=== PATIENT | female | born 1970 | race Caucasian/White ===

== ENCOUNTER 2022-07-17 03:50 | Inpatient (IN) | payer OTHER ==
[~2022-07-17] VITALS: Ht 162.6 cm; Wt 142.0 kg
[2022-07-17] MEDS ORDERED: LORA10ER PO (07:32)
[2022-07-17] MEDS ORDERED: Acetaminophen325 M1 PO (07:33)
[2022-07-17] MEDS ORDERED: SPIR25 PO (07:34)
[2022-07-17] MEDS ORDERED: FURO20 PO (07:34)
[2022-07-17] MEDS ORDERED: BUPR150ER PO (07:35)
[2022-07-17] MEDS ORDERED: VITAMIN B-1100 M1 PO (07:36)
[2022-07-17] MEDS ORDERED: FOLI1 PO (07:36)
[2022-07-17] MEDS ORDERED: B-12500 MC2 PO (07:37)
[2022-07-17] MEDS ORDERED: ACYC400 PO (07:37)
[2022-07-17] MEDS ORDERED: ACAMPROSATE CA333 MG PO (07:38)
[2022-07-17] MEDS ORDERED: MIRALAX11910 PO (07:39)
[2022-07-17] MEDS ORDERED: ALBU90OI INH (07:40)
[2022-07-17] MEDS ORDERED: Flonase 0.05% N16 GM (07:40)
--- NOTE | 2022-07-17 08:04 | NUR ---
PT ARRIVED TO ROOM AROUND 0700, PT SETTLED IN AND MONITORS PLACED. PT MAKES WORDS, DOESN'T ANSWER QUESTIONS, ANSWERS "THE ORIGINAL" WHEN ASKED WHERE SHE IS. SHE DOESN'T ANSWER HER BIRTHDAY, YEAR, ETC. WHEN LYING FLAT SATS DROPPED TO MID 80S, OXYGEN VIA NC PLACED AT 5L. AFTER WEARING OXYGEN FOR SOME TIME HER SATS MAINTAINED AT 100% AND NOW IS TITRATED DOWN TO 2L. KHOA,CHARGE NURSE CALLED TO COMPLETE THE ADMISSION. PT CONTINUES TO MOAN INTERMITTENTLY. LUNGS WITH INSPIRATORY WHEEZE, BELLY LARGE DISTENDED, PITTING EDEMA TO THE PERIMETER OF THE ABDOMEN, AREA AROUND UMBILICUS IS NOT. INCONTINENT OF LIQUID STOOL, CATHETER WITH MINIMAL YELLOW RETURN. ANKLES WITH GOOD COLOR/TEMP/REFILL NO EDEMA. PIV IN RIGHT AC.
[2022-07-17 09:06] LABS: BASOPHILS ABSOLUTE AUTO 0.02 K/mm3 (0.00-0.23); BASOPHILS PERCENT AUTO 0 % (0-2); EOSINOPHILS ABSOLUTE AUTO 0.09 K/mm3 (0.00-0.68); EOSINOPHILS PERCENT AUTO 1 % (0-6); Hematocrit 20.9 % (33.0-51.0); Hemoglobin 7.4 g/dL (11.5-16.0); IMMATURE GRAN PERCENT AUTO 1 % (0-1); LYMPHOCYTES ABSOLUTE AUTO 1.59 K/mm3 (0.84-5.20); LYMPHOCYTES PERCENT AUTO 10 % (21-46); MONOCYTES ABSOLUTE AUTO 1.55 K/mm3 (0.16-1.47); MONOCYTES PERCENT AUTO 10 % (4-13); Mean Corpuscular HGB Conc 35.4 g/dL (31.5-36.5); Mean Corpuscular Volume 113 fL (80-100); Mean Platelet Volume 10.1 fL (9.1-12.4); NEUTROPHILS ABSOLUTE AUTO 12.34 K/mm3 (1.96-9.15); NEUTROPHILS PERCENT AUTO 79 % (41-73); Platelet Count 129 K/mm3 (150-400); RDW Coefficient Variation 16.5 % (11.7-14.2); RDW Standard Deviation 66.5 fL (35.1-46.3); Red Blood Cell Count 1.85 M/mm3 (3.80-5.20); White Blood Cell Count 15.69 K/mm3 (4.00-11.30)
[2022-07-17 09:35] LABS: Albumin/Globulin Ratio 0.8 (0.8-1.8); Bilirubin, Total 4.5 mg/dL (0.1-1.0); Bun/Creatinine Ratio 8.5 (12.0-20.0); Calcium, Blood 8.7 mg/dL (8.5-10.1); Creatinine, Blood 5.03 mg/dL (0.40-1.00); Globulin, Blood 3.8 g/dL (2.2-4.0); Magnesium, Blood 2.3 mg/dL (1.6-2.4); Phosphorus, Blood 4.8 mg/dL (2.5-4.9); Potassium, Blood 4.3 mmol/L (3.5-5.5); Total Protein, Blood 6.8 g/dL (6.4-8.2)
[2022-07-17 10:55] LABS: Base Excess Venous -7.2 mmol/L; Bicarbonate Venous 18.6 mmol/L (24.0-30.0); pH Blood Venous 7.22 (7.34-7.37)
[2022-07-17 11:16] LABS: International Normalized Ratio 1.48; Prothrombin Time Results 15.1 Sec (9.7-11.5)
--- NOTE | 2022-07-17 13:05 | NUR ---
LATE NOTE: PT CONTINUES TO BE ONE WORD ANSWERS, VIDEO CONSULT PT WAS UNABLE TO ANSWER HER QUESTIONS, WAS AT THE BEDSIDE DURING CONSULT. PT REMAINS WITH COUGH, MOIST, SWALLOWS THE RETURN. ABD REMAINS FIRM LARGE, PITTING, ROE CONTINUES WITH SCANT RETURN. ZAIRARN FROM ICU TO BEDSIDE FOR REPORT, TRANSFERS TO ICU WITH REINIER VOSS AND KATIE DIEHL.
[2022-07-17 13:25] LABS: Hematocrit 21.6 % (33.0-51.0); Hemoglobin 7.3 g/dL (11.5-16.0)
--- NOTE | 2022-07-17 14:00 | NUR ---
TRANSFER TO ICU PT ARRIVED TO ICU 15 VIA BED AT 1255. PT IS LETHARGIC AND MOANS OUT. SPEECH IS CLEAR AT TIMES WHEN PT YELLS OUT. PT IS CONFUSED AND NOT REDIRECTABLE. PT ON 2L O2 NC, LS CLEAR IN UPPERS, DIM IN BASES. WITH OCCASIONAL MOIST COUGH. PT HYPOTENSIVE UPON ARRIVAL. PICC PLACED TO [facility]. LEVOPHED STARTED AT 2 MCG/MIN AND 3% SALINE STARTED AT 25 ML/HR. PT WITH ROE IN PLACE DRAINING SMALL AMOUNT OF BLOODY URINE OUTPUT. NO FAMILY AT BEDSIDE. WILL CONTINUE TO MONITOR.
[2022-07-17 15:05] LABS: Percent Saturation 121.1 % (15.0-50.0)
[2022-07-17 16:11] LABS: Hematocrit 20.8 % (33.0-51.0); Hemoglobin 7.3 g/dL (11.5-16.0)
--- NOTE | 2022-07-17 17:28 | NUR ---
SHIFT SUMMARY NO ACUTE CHANGES THIS SHIFT. PT REMAINS OBTUNDED WITH OCCASIONAL PERIODS OF MOANING OUT AND YELLING. PT IS NOT REDIRECTABLE. SOME WORDS ARE CLEAR. PT MOVES ALL EXTREMITIES. VITAL SIGNS STABLE WITH LEVOPHED INFUSING AT 6 MCG/MIN. PICC TO CORBIN IN PLACE. 3% SALINE INFUSING AT 25 ML/HR. ROE REMAINS IN PLACE WITH MINIMAL AMOUNT OF DARK RED OUTPUT NOTED. WILL CONTINUE TO MONITOR AND REPORT OFF TO ONCOMING RN.
--- NOTE | 2022-07-17 19:15 | NUR ---
ASSUMED CARE PATIENT LYING IN BED INTERMITTENTLY ASLEEP. BEGINS TALKING IF SOMEONE IS IN THE ROOM RESPONDING WHEN AWAKE, THEN QUICKLY RETURNS TO SLEEP. RESPONDS TO VERBAL STIMULI AT TIMES, OTHER TIMES OBTUNDED AND DIFFICULT TO AROUSE. LEVOPHED INF @ 6MCG/KG/MIN AND 3% SALINE @ 25ML/HR. MINIMAL URINE OUTPUT IN ROE TUBING. 2LPM VIA NC IN PLACE WITH SPO2 HIGH 90'S-100%. BP SOFT WITH MAPS 60-65. MONITOR SHOWS SINUS RHYTHM WITH RATE 90'S. REPORT RECEIVED FROM ZAIRA Gomez RN.
[2022-07-17 19:17] LABS: Albumin, Blood 3.4 g/dL (3.4-5.0); Anion Gap 10 mmol/L (6-16); Blood Urea Nitrogen 50 mg/dL (8-24); Bun/Creatinine Ratio 9.3 (12.0-20.0); CO2, Blood 21 mmol/L (21-32); Calcium, Blood 9.1 mg/dL (8.5-10.1); Chloride, Blood 92 mmol/L (98-108); Creatinine, Blood 5.39 mg/dL (0.40-1.00); Glomerular Filtration Rate 9 (60-); Glucose, Blood 126 mg/dL (70-99); Phosphorus, Blood 4.9 mg/dL (2.5-4.9); Potassium, Blood 4.2 mmol/L (3.5-5.5); Sodium, Blood 123 mmol/L (136-145)
--- NOTE | 2022-07-17 21:00 | NUR ---
DR. HRERERA CALL DR. HERRERA CALLED FOR AN UPDATE ON PATIENT. UPDATE GIVEN THAT BP IS SOFT WITH INCREASE OF LEVOPHED FROM 6MCG/KG/MIN TO 7MCG/KG/MIN AND THERE IS MINIMAL OUTPUT FROM ROE. DR. HERRERA ORDERED A LASIX GTT AND REQUESTED TO BE NOTIFED IF SODIUM LEVELS CONITNUE TO DROP. LABS SCHEDULED FOR 2200.
[2022-07-17 22:24] LABS: Hematocrit 20.1 % (33.0-51.0); Hemoglobin 7.2 g/dL (11.5-16.0)
[2022-07-18 04:20] LABS: Hematocrit 19.6 % (33.0-51.0); Hemoglobin 6.9 g/dL (11.5-16.0); Mean Corpuscular HGB 39.4 pg (26.0-34.0); Mean Corpuscular HGB Conc 35.2 g/dL (31.5-36.5); Mean Corpuscular Volume 112 fL (80-100); Platelet Count 121 K/mm3 (150-400); RDW Coefficient Variation 16.5 % (11.7-14.2); RDW Standard Deviation 66.3 fL (35.1-46.3); Red Blood Cell Count 1.75 M/mm3 (3.80-5.20); White Blood Cell Count 15.23 K/mm3 (4.00-11.30)
[2022-07-18 04:41] LABS: International Normalized Ratio 1.5; Prothrombin Time Results 15.3 Sec (9.7-11.5)
[2022-07-18 04:51] LABS: Albumin, Blood 3.5 g/dL (3.4-5.0); Calcium, Blood 8.6 mg/dL (8.5-10.1); Creatinine, Blood 5.68 mg/dL (0.40-1.00); Globulin, Blood 3.5 g/dL (2.2-4.0); Magnesium, Blood 2.2 mg/dL (1.6-2.4); Potassium, Blood 4.3 mmol/L (3.5-5.5)
--- NOTE | 2022-07-18 06:14 | NUR ---
SHIFT SUMMARY PATIENT REMAINS CONFUSED, STATES SHE IS IN [place] AND DOES NOT ANSWER OTHER ORIENTATION QUESTIONS. DOES NOT FOLLOW COMMANDS. EASILY AGITATED. BP REMAIN SOFT. LEVOPHED INCREASED TO 13 MCG/KG/MIN, 3% SALINE REMAINS AT 25ML/HR. LASIX GTT STARTED AT BEGINNING OF SHIFT AND REMAINED ON UNTIL THIS MORNING WHEN UPDATE GIVEN TO DR. HERRERA. WITH NO URINE OUTPUT AND HEMODYNAMIC INSTABILITY, DR. HERRERA ORDERED THE LASIX GTT BE DC'D AND TO CONSULT HOSPITALIST FOR BLOOD TRANSFUSION FOR HGB 6.9. ONCE PATIENT IS HEMODYNAMICALLY STABLE, THEN DIALYSIS WILL BE AN OPTION. NA REMAINS LOW, DECREASED FROM 126 [address]. CALL MADE TO DR. JOHNSON FOR TRANSFUSION ORDER PER RECOMMENDATION. ORDERS RECEIVED TO TRANSFUSE 1 UNIT PRBC AND VASOPRESSIN TO BE STARTED ONCE LEVOPHED TITRATION REACHES 20MCG/KG/MIN. NO BLOOD CONSENT AVAILABLE AND PATIENT'S AMS IS TOO SEVERE FOR HER TO PROVIDE CONSENT. LEFT MESSAGE ON VOICEMAIL WITH PATIENT'S TO RETURN CALL TO OBTAIN BLOOD CONSENT. OXYGEN REQUIREMENTS INCREASED FROM 2LPM VIA NC TO 4LPM VIA NC WITH SPO2 LOW TO MID 90'S. RHYTHM REMAINS NSR WITH RATE IN 90'S. ROE CATHETER REPLACED D/T BEING PRESENT ON ADMISSION. SKIN TEAR SEEN ON RT BUTTOCK-SITE CLEANSED AND PICTURE PLACED IN CHART. NO OTHER CHANGES DURING SHIFT.
[2022-07-18 12:50] LABS: Hematocrit 20.3 % (33.0-51.0); Hemoglobin 7.2 g/dL (11.5-16.0)
--- NOTE | 2022-07-18 17:32 | NUR ---
SHIFT SUMMARY PT MORE ALERT THIS AFTERNOON WITH FAMILY AT BEDSIDE. PT IS ABLE TO ANSWER SIMPLE QUESTIONS AND FOLLOW SIMPLE DIRECTIONS FOR SHORT PERIODS OF TIME. PT REMAINS CONFUSED AND FREQUENTLY MUMBLES AND YELLS OUT NONSENSICAL SPEECH. DIALYSIS CATH PLACED THIS SHIFT. PT RECIEVING DIALYSIS AT THIS TIME. PICC TO CORBIN REMAINS C/D/I. LEVOPHED INFUSING AT 4 MCG/MIN AND NS TKO. PT REMAINS ON 2L O2 NC. ROE REMAINS IN PLACE WITH SCANT AMOUNT OF BLOODY/DARK URINE OUTPUT NOTED. ROE IRRIGATED THIS AM PER DR HERRERA WITHOUT RETURN OF CLOTS NOTED. MULTIPLE PT FAMILY MEMBERS IN AND OUT OF THE ROOM THIS AFTERNOON. WILL CONTINUE TO MONITOR AND REPORT OFF TO ONCOMING RN.
[2022-07-18 21:02] LABS: Hematocrit 19.7 % (33.0-51.0); Hemoglobin 7.1 g/dL (11.5-16.0)
--- NOTE | 2022-07-18 21:45 | NUR ---
ASSUMED CARE. PT WAS AGGITATED BY FAMILY BEING HER SHE IS NOW STARTING TO CALM DOWN. SHE IS CONFUSED, ONLY KNOWS SELF. YELLS OUT ALOT, MARITZA OCCATIONALLY, AND COMPLAINS OF THINGS LIKE SHE CAN'T FIND HER CALL LIGHT THAT IS IN HER HAND. SHE HAD A LARGE BLOW OUT OF STOOL THAT TOOK 4 PEOPLE TO CLEAN HER UP WITH. RECTAL TUBE WAS PLACED AT THAT TIME. STOOL WAS LIQUID WITH COFFEE GROUNDS LIKE SEDIMENT, SOME BRIGHT RED BLOOD AT WHICH SHE SAID SHE HAS HEMMORRIODS, 200CC WAS SUCTIONED UP IN CANISTER. CATH STILL HAS BLOOD NOTED. SHE FINISHED DIALYSIS, BLOOD PRESSURES ARE HOLDING ON [address] FLOREZ IN REGARDS TO BLOOD BLACK STOOLS, ORDER FOR GI CONSULT WILL BE PLACED, STAT H&H AND MELATONIN ORDERED TO HELP HER SLEEP. WILL CONTINUE TO MONITOR, CALL LIGHT IS IN REACH.
[2022-07-19 03:47] LABS: BASOPHILS ABSOLUTE AUTO 0.02 K/mm3 (0.00-0.23); BASOPHILS PERCENT AUTO 0 % (0-2); EOSINOPHILS ABSOLUTE AUTO 0.11 K/mm3 (0.00-0.68); EOSINOPHILS PERCENT AUTO 1 % (0-6); Hematocrit 19.6 % (33.0-51.0); Hemoglobin 6.9 g/dL (11.5-16.0); IMMATURE GRAN ABSOLUTE AUTO 0.22 K/mm3 (0.00-0.10); IMMATURE GRAN PERCENT AUTO 2 % (0-1); LYMPHOCYTES ABSOLUTE AUTO 1.33 K/mm3 (0.84-5.20); LYMPHOCYTES PERCENT AUTO 9 % (21-46); MONOCYTES ABSOLUTE AUTO 1.81 K/mm3 (0.16-1.47); MONOCYTES PERCENT AUTO 12 % (4-13); Mean Corpuscular HGB 38.1 pg (26.0-34.0); Mean Corpuscular HGB Conc 35.2 g/dL (31.5-36.5); Mean Corpuscular Volume 108 fL (80-100); Mean Platelet Volume 10.5 fL (9.1-12.4); NEUTROPHILS ABSOLUTE AUTO 11.09 K/mm3 (1.96-9.15); NEUTROPHILS PERCENT AUTO 76 % (41-73); NRBC ABSOLUTE 0.02 K/mm3 (0.00-0.02); NRBC Auto 0.1 /100 WBC (0.0-0.2); Platelet Count 108 K/mm3 (150-400); RDW Coefficient Variation 17.9 % (11.7-14.2); RDW Standard Deviation 68.7 fL (35.1-46.3); Red Blood Cell Count 1.81 M/mm3 (3.80-5.20); White Blood Cell Count 14.58 K/mm3 (4.00-11.30)
[2022-07-19 04:04] LABS: Albumin/Globulin Ratio 1.2 (0.8-1.8); Bilirubin, Total 4.1 mg/dL (0.1-1.0); Bun/Creatinine Ratio 8.1 (12.0-20.0); Calcium, Blood 8.6 mg/dL (8.5-10.1); Creatinine, Blood 4.58 mg/dL (0.40-1.00); Globulin, Blood 3.2 g/dL (2.2-4.0); Magnesium, Blood 2.2 mg/dL (1.6-2.4); Phosphorus, Blood 3.6 mg/dL (2.5-4.9); Total Protein, Blood 7.2 g/dL (6.4-8.2)
[2022-07-19 04:18] LABS: Creatinine, Urine Random 95.5 mg/dL (27.00-270.00)
[2022-07-19 05:25] LABS: PCO2 Arterial 49.5 mmHg (35-45); PO2 Arterial 82.3 mmHg (80-100)
[2022-07-19 05:26] LABS: pH Blood Arterial 7.29 (7.35-7.45)
--- NOTE | 2022-07-19 06:37 | NUR ---
SHIFT SUMMARY: MORE ALERT AND INTERACTIVE T/O THE NIGHT. STILL CONFUSED AND NEEDING CONSTANT RE-ORIENTATION AND DIRECTION. ABLE TO FOLLOW DIRECTIONS, BUT STILL HAS CONFUSION AND FREQUENTLY YELLS OUT WITH NONSENSICAL SPEECH. LS DIM WITH SATS MAINTAINING >95% ON 3L OF O2. ABG PH WAS CRICIAL LOW THIS AM AT 7.29, WAS NOTIFIED. LEVO WAS INCREASED AND CURRENTLY AT 10MCQ TO KEEP MAP >60. HR CONTINUES IN THE 80'S. ABD DISTENDED ROUND AND FIRM, LARGE EXPLOSIVE DIRRHEA NOTED AFTER LACTOLOSE WAS STARTED. RECTAL TUBE WAS PLACED, NOTED BLACK COFFEE GROUND STOOLS, 400 OUT THIS SHIFT. GI CONSULT CALLED INTO DR. SANTIAGO THIS AM. CURRENTLY GETTING 1 UNIT OF PRBC FOR DROP IN H&H. ROE WAS REMOVED SHE WAS NOT HAVING ANY URINE OUTPUT, ONLY 100 OF MIXED BLOODY URINE, WHICH WAS SENT TO LAB FOR TESTS THAT WERE ORDERED. SKIN TEAR ON BOTTOM OPEN TO AIR. WILL REPORT TO DAYSDEFT.
--- NOTE | 2022-07-19 07:13 | NUR ---
ASSUME CARE: I have assumed care of this patient.
[2022-07-19 08:11] LABS: COMPLEMENT C3, SERUM 75 mg/dL (82-167); COMPLEMENT C3, SERUM 76 mg/dL (82-167); COMPLEMENT C4, SERUM 11 mg/dL (12-38); HBSAG SCREEN Negative (Negative)
[2022-07-19 09:11] LABS: HCV AB <0.1 (0.0-0.9)
[2022-07-19 15:26] LABS: Hematocrit 22.3 % (33.0-51.0); Hemoglobin 7.6 g/dL (11.5-16.0)
--- NOTE | 2022-07-19 18:48 | NUR ---
SHIFT SUMMARY: pt status changed to PCU this morning. NEURO: WNL CARDIAC: levophed titrated off this morning. Morning metoprolol dose of held. NSR. RESPIRATORY: CTA on RA GI/: pt up to bedside commode several times independantly. reports frequency and urgency which was improved with one dose PRN pyridium. loose BM this AM SKIN: no breakdown noted. pt to shower today. PSYCH/SOCIAL: family at bedside and supportive.
--- NOTE | 2022-07-19 19:14 | NUR ---
SHIFT SUMMARY: NEURO: pt alert to self, family, and surroundings. Speech is slurred and pt is impulsive. She was up to chair for three hours and worked to stand with PT. CARDIAC: levophed currently at 6. Midodrine 10mg given at 1800. Monitor in SR RESPIRATORY: NC was titrated down to 1L until this evening. After repositioning O2 requirements increased to 4L. Pulmonology informed of this. GI/: speech to eval pt today. Cleared for clear liquid diet which pt is tolerating well. rectal tube pulled per pt request. Minimal output today. Bedside hemoccult performed by residency team was positive. PSYCH/SOCIAL: family at bedside and supportive.
[2022-07-19 21:08] LABS: ANTI-DSDNA ANTIBODIES <1 IU/mL (0-9); RNP ANTIBODIES <0.2 AI (0.0-0.9); SJOGREN'S ANTI-SS-A <0.2 AI (0.0-0.9); SJOGREN'S ANTI-SS-B <0.2 AI (0.0-0.9); SMITH ANTIBODIES <0.2 AI (0.0-0.9)
[2022-07-19 21:44] LABS: Hematocrit 21.7 % (33.0-51.0); Hemoglobin 7.7 g/dL (11.5-16.0)
--- NOTE | 2022-07-19 23:48 | NUR ---
ASSUMPTION OF CARE: ASSUMED CARE OF PT AT 1900. PT IS AWAKE AND LAYING IN BED AT THIS TIME. PT IS A&O X 2-3 AND SPEECH IS SLOW AND SLURRED AT THIS TIME. PT APPEARS TO BE PLEASANT BUT AT TIMES AGGITATED WITH HOSPITILIZATION, STATING "WHY WON'T THEY LET ME JUST DO THINGS". PT IS ABLE TO MOVE EXTREMITIES BUT STILL REQUIRES 2 PERSON ASSIST WITH REPOSITIONING. PT CURRENTLY ON 4 L VIA NC WITH CLEAR LUNG SOUNDS T/O AND DIM BASES. PT HAS O2 LEVELS MAINTAINING 96< AND 22 18-20. S1/S2 ASCULTATED, HR IN THE 80'S WITH SBP IN THE 100-110'S; LEVOPHED IS RUNNING AT 6 MCG/MIN. PT HAS AN OBESE, ROUND ABD WITH HYPOACTIVE BS PRESENT IN ALL FOUR QUADRANTS. PT IS CURRENTLY TOLERATING A CLEAR LIQUID DIET; VERBAL ORDERS FROM DR SANTIAGO FOR NPO AT MIDNIGHT FOR PROCEDURAL PREPARATION. PT HAS BEEN UTILIZING BED NEGRO FOR BOWEL MOVENTS/VOIDING; PT HAS FREQUENT LIQUID, DARK BOWEL STOOLS. THE RECTAL TUBE WAS REMOVED LAST SHIFT PER PT'S REQUEST. PT HAS WARM EXTREMITIES AND PPP X 4. OCTREOTIDE INFUSING AT 25 MLS/HR AND PROTONIX INFUSING AT 10 MLS/HR. WILL CONTINUE TO MONITOR THOUGHOUT THE SHIFT.
[2022-07-20 03:26] LABS: BASOPHILS ABSOLUTE AUTO 0.04 K/mm3 (0.00-0.23); BASOPHILS PERCENT AUTO 0 % (0-2); EOSINOPHILS ABSOLUTE AUTO 0.15 K/mm3 (0.00-0.68); EOSINOPHILS PERCENT AUTO 1 % (0-6); Hematocrit 21.5 % (33.0-51.0); Hemoglobin 7.5 g/dL (11.5-16.0); IMMATURE GRAN ABSOLUTE AUTO 0.26 K/mm3 (0.00-0.10); IMMATURE GRAN PERCENT AUTO 2 % (0-1); LYMPHOCYTES ABSOLUTE AUTO 1.85 K/mm3 (0.84-5.20); LYMPHOCYTES PERCENT AUTO 16 % (21-46); MONOCYTES PERCENT AUTO 12 % (4-13); Mean Corpuscular HGB 37.9 pg (26.0-34.0); Mean Corpuscular HGB Conc 34.9 g/dL (31.5-36.5); Mean Corpuscular Volume 109 fL (80-100); Mean Platelet Volume 10.8 fL (9.1-12.4); NEUTROPHILS ABSOLUTE AUTO 7.74 K/mm3 (1.96-9.15); NEUTROPHILS PERCENT AUTO 68 % (41-73); NRBC ABSOLUTE 0.05 K/mm3 (0.00-0.02); NRBC Auto 0.4 /100 WBC (0.0-0.2); Platelet Count 98 K/mm3 (150-400); RDW Coefficient Variation 20.4 % (11.7-14.2); RDW Standard Deviation 78.8 fL (35.1-46.3); Red Blood Cell Count 1.98 M/mm3 (3.80-5.20); White Blood Cell Count 11.44 K/mm3 (4.00-11.30)
[2022-07-20 03:40] LABS: Albumin, Blood 4.2 g/dL (3.4-5.0); Albumin/Globulin Ratio 1.2 (0.8-1.8); Bun/Creatinine Ratio 7.1 (12.0-20.0); Calcium, Blood 8.8 mg/dL (8.5-10.1); Creatinine, Blood 3.94 mg/dL (0.40-1.00); Globulin, Blood 3.4 g/dL (2.2-4.0); Potassium, Blood 3.6 mmol/L (3.5-5.5); Total Protein, Blood 7.6 g/dL (6.4-8.2)
--- NOTE | 2022-07-20 06:20 | NUR ---
SHIFT SUMMARY: NO ACUTE CHANGES THIS SHIFT. PT HAD RECTAL TUBE REMOVED LAST SHIFT AND IS STILL CONTINUING TO HAVE FREQUENT, LIQUID, DARK-BROWN STOOL THROUGHOUT THE SHIFT. BLADDER SCANNED COMPLETED WITH 44 MLS NOTED. PT HAS BEEN SLEEPING ON AND OFF THROUGHOUT THE SHIFT. LEVOPHED IS AT 6 MCG/MIN, PROTONIX 10 MLS/HR, AND OCTREOTIDE AT 25 MLS/HR. PT HAS BEEN NPO SINCE MIDNIGHT IN PREP FOR EDG THIS MORNING. PT REQUESTING WATER THROUGHOUT THE SHIFT AND REMINDED OF NPO STATUS. WILL CONTINUE TO MONITO THROUGHOUT THE SHIFT.
--- NOTE | 2022-07-20 07:25 | NUR ---
ASSUME CARE: I have assumed care of this patient.
[2022-07-20 08:09] LABS: HBSAG SCREEN Negative (Negative); HCV AB <0.1 (0.0-0.9); HEP A AB, IGM Negative (Negative); HEP B CORE AB, IGM Negative (Negative)
[2022-07-20 09:54] LABS: Hemoglobin 7.5 g/dL (11.5-16.0)
[2022-07-20 15:22] LABS: Hematocrit 21.4 % (33.0-51.0); Hemoglobin 7.3 g/dL (11.5-16.0)
--- NOTE | 2022-07-20 18:56 | NUR ---
SHIFT SUMMARY: EGD rescheduled to tomorrow morning before dialysis. NEURO: pt alert and oriented to self, family, location, and occationally month. She was up in chair for a few hours today before she began complaining of nausea. One dose of PRN zofran was given. Once returning back to bed, pt immediatly fell asleep. Last dose of midodrine and lactulose held as pt was too tired to safely take medications. CARDIAC: levophed currently running at 5. HR SR on monitor. RESPIRATORY: currently at 4 L NC. GI/: several liquid BMs today. 44mls of urine on bladder scan at 1600. SKIN: no new breakdown noted. PSYCH/SOCIAL: family at bedside and supportive.
[2022-07-20 21:00] LABS: Hematocrit 22.5 % (33.0-51.0); Hemoglobin 7.5 g/dL (11.5-16.0)
[2022-07-21 03:36] LABS: Stool Occult Blood Guaiac 1 Pos (Neg)
[2022-07-21 04:37] LABS: BASOPHILS PERCENT AUTO 1 % (0-2); EOSINOPHILS ABSOLUTE AUTO 0.36 K/mm3 (0.00-0.68); EOSINOPHILS PERCENT AUTO 2 % (0-6); Hematocrit 23.8 % (33.0-51.0); Hemoglobin 7.9 g/dL (11.5-16.0); IMMATURE GRAN ABSOLUTE AUTO 0.69 K/mm3 (0.00-0.10); IMMATURE GRAN PERCENT AUTO 4 % (0-1); LYMPHOCYTES ABSOLUTE AUTO 3.06 K/mm3 (0.84-5.20); LYMPHOCYTES PERCENT AUTO 19 % (21-46); MONOCYTES ABSOLUTE AUTO 2.43 K/mm3 (0.16-1.47); MONOCYTES PERCENT AUTO 15 % (4-13); Mean Corpuscular HGB 37.6 pg (26.0-34.0); Mean Corpuscular HGB Conc 33.2 g/dL (31.5-36.5); Mean Corpuscular Volume 113 fL (80-100); Mean Platelet Volume 10.8 fL (9.1-12.4); NEUTROPHILS ABSOLUTE AUTO 9.45 K/mm3 (1.96-9.15); NEUTROPHILS PERCENT AUTO 59 % (41-73); NRBC Auto 0.6 /100 WBC (0.0-0.2); Platelet Count 121 K/mm3 (150-400); RDW Coefficient Variation 20.3 % (11.7-14.2); RDW Standard Deviation 83.6 fL (35.1-46.3); White Blood Cell Count 16.09 K/mm3 (4.00-11.30)
[2022-07-21 05:12] LABS: Albumin, Blood 4.1 g/dL (3.4-5.0); Albumin/Globulin Ratio 1.2 (0.8-1.8); Bilirubin, Total 3.8 mg/dL (0.1-1.0); Bun/Creatinine Ratio 5.4 (12.0-20.0); Calcium, Blood 8.6 mg/dL (8.5-10.1); Creatinine, Blood 3.53 mg/dL (0.40-1.00); Globulin, Blood 3.4 g/dL (2.2-4.0); Potassium, Blood 3.7 mmol/L (3.5-5.5); Total Protein, Blood 7.5 g/dL (6.4-8.2)
--- NOTE | 2022-07-21 06:19 | NUR ---
SHIFT SUMMARY: PT REMAINS ON LEVOPHED GTT AT 8 MCG, PROTONIX GTT 10 MLS/HR, AND OCTREOTIDE GTT AT 25 MLS/HR. PT HAS BEEN IN AND OUT OF SLEEP THROUGHOUT THE NIGHT AND DISPLAYS CONFUSION EPIDOSES BUT IS EASILY REORIENTED. PT AMMONIA LEVELS INCREASED TO 86 ON MOST RECENT DRAW. PT HAS BEEN CONTINUING TO HAVE LIQUID BOWEL MOVEMENTS THROUGHOUT THE SHIFT AND A STOOL SAMPLE WAS SENT TO LAB. BLADDER SCAN SHOWED 91 MLS. PT HAS PERIODIC SLEEP APNEIC EPISODES THIS AND REQUIRED TO BE PLACED ON 15 L HFNC TO MAINTAIN O2 LEVELS 90<. PT HYPOTENSIVE IN THE MIDDLE OF SHIFT AND LEVOPHED TITRATED UP THROUGHOUT THE SHIFT. WILL CONTINUE TO MONOTOR UNTIL ONCOMING RN ARRIVES.
--- NOTE | 2022-07-21 11:52 | NUR ---
07/21/22 [address] Licona; see anesthesia records.
--- NOTE | 2022-07-21 16:19 | NUR ---
PROVIDER UPDATE: Dr Sullivan called regarding patients decreased LOC. He and Dr Sanchez will place new orders for ammonia level, vbg, and increased lactulose dosage.
--- NOTE | 2022-07-21 16:21 | NUR ---
PROVIDER UPDATE: Dr Chaves notified of pt's levophed requirements and decreased LOC. She requests that RN called GI and ask to place NG tube.
--- NOTE | 2022-07-21 16:23 | NUR ---
PROVIDER PHONE CALL: Dr Domingo called to verify that RN can safely place an NG tube. Will place tube.
[2022-07-21 17:05] LABS: Hematocrit 24.6 % (33.0-51.0); Hemoglobin 8.1 g/dL (11.5-16.0)
[2022-07-21 17:09] LABS: PCO2 Arterial 68.2 mmHg (35-45); PO2 Arterial 53.1 mmHg (80-100)
[2022-07-21 17:12] LABS: pH Blood Arterial 7.22 (7.35-7.45)
--- NOTE | 2022-07-21 18:36 | NUR ---
SHIFT SUMMARY: NEURO: pt increasingly lethargic throughout the day. She will open her eyes to voice and gentle stimulation, but does not answer RN's questions at this time. CARDIAC: NSR. Norepi currently running at 14 mcg/min. RESPIRATORY: pt started on BIPAP 14/6 30% after ABG resulted. She is tolerating this well GI/: rectal tube placed this AM for lactulose enemas as pt was lethargic after discussion with resident team. NG then placed this afternoon in order to give patient midodrine. SKIN: no new breakdown noted PSYCH/SOCIAL: at bedside and supportive throughout the day.
[2022-07-21 21:06] LABS: Hematocrit 24.8 % (33.0-51.0); Hemoglobin 8.1 g/dL (11.5-16.0)
--- NOTE | 2022-07-21 22:56 | NUR ---
ASSUMPTION OF CARE: ASSUMED CARE OF PT AT 1900. PT IS A&O X 2-3. PT IS CURRENTLY ON BIPAP WITH SETTINGS 16/8 FIO2 40%; O2 LEVELS 96<, RR 10-12. PT IS ANXIOUS AND EMOTIONAL RELATED TO BIPAP USE. PT GIVEN BIPAP MASK BREAK AND TOLERATED WELL ON 6 L HFNC. PT HR IN THE 70'S WITH SBP 100'S; LEVOPHED GTT AT 14MCG/KG/MIN. PT LUNG SOUNDS ARE DIMINISHED UPON ASCULTATION BUT CLEAR IN THE UPPER LOBES; SHALLOW BREATHING NOTED. ABD IS ROUND AND NON-TENDER WITH HYPOACTIVE BOWEL SOUNDS IN ALL FOUR. NGT IS CLAMPED AND FLUSHED WITH 61 MLS OF WATER; RECTAL TUBE IN PLACE AND DRAINING TO GRAVITY WITH LIQUID, LIGHT-BROWN DRAINAGE. R. ARM IS COOL TO TOUCH AND MORE EDEMATOUS THAN YESTERDAY. RFA IV ASSESSED AND WAS FOUND TO BE INFILLTRATED AND REMOVED BY THIS RN; DR CEJA AWARE. R. ARM ELEVATED AT THIS TIME. PT PULSES UNABLE TO BE PALPATED SO ALL EXTREMITY PULSES FOUND WITH DOPPLER. CAP PROTOCOL INITATED AND ORAL CARE CONDUCTED. PROTONIX GTT 10 MLS/HR, OCTREOTIDE GTT 25 MLS/HR. BRUSING NOTED ON R. SIDE OF NECK THAT IS IN THE LATERAL-POSTERIOR REGION; REDDISH-PURPLE DISCOLORATION NOTED. WILL CONTINUE TO MONITOR THROUGHOUT THE SHIFT.
[2022-07-22 04:40] LABS: BASOPHILS ABSOLUTE AUTO 0.16 K/mm3 (0.00-0.23); BASOPHILS PERCENT AUTO 1 % (0-2); EOSINOPHILS ABSOLUTE AUTO 0.42 K/mm3 (0.00-0.68); EOSINOPHILS PERCENT AUTO 2 % (0-6); Hematocrit 24.9 % (33.0-51.0); Hemoglobin 7.9 g/dL (11.5-16.0); IMMATURE GRAN ABSOLUTE AUTO 0.93 K/mm3 (0.00-0.10); IMMATURE GRAN PERCENT AUTO 5 % (0-1); LYMPHOCYTES ABSOLUTE AUTO 3.27 K/mm3 (0.84-5.20); LYMPHOCYTES PERCENT AUTO 18 % (21-46); MONOCYTES ABSOLUTE AUTO 2.68 K/mm3 (0.16-1.47); MONOCYTES PERCENT AUTO 15 % (4-13); Mean Corpuscular HGB 36.6 pg (26.0-34.0); Mean Corpuscular HGB Conc 31.7 g/dL (31.5-36.5); Mean Corpuscular Volume 115 fL (80-100); Mean Platelet Volume 10.8 fL (9.1-12.4); NEUTROPHILS ABSOLUTE AUTO 10.53 K/mm3 (1.96-9.15); NEUTROPHILS PERCENT AUTO 59 % (41-73); NRBC ABSOLUTE 0.12 K/mm3 (0.00-0.02); NRBC Auto 0.7 /100 WBC (0.0-0.2); Platelet Count 130 K/mm3 (150-400); RDW Coefficient Variation 19.9 % (11.7-14.2); RDW Standard Deviation 82.6 fL (35.1-46.3); Red Blood Cell Count 2.16 M/mm3 (3.80-5.20); White Blood Cell Count 17.99 K/mm3 (4.00-11.30)
[2022-07-22 04:55] LABS: Albumin, Blood 3.8 g/dL (3.4-5.0); Albumin/Globulin Ratio 1.1 (0.8-1.8); Bun/Creatinine Ratio 5.1 (12.0-20.0); Calcium, Blood 8.7 mg/dL (8.5-10.1); Creatinine, Blood 4.33 mg/dL (0.40-1.00); Globulin, Blood 3.4 g/dL (2.2-4.0); Phosphorus, Blood 3.8 mg/dL (2.5-4.9); Potassium, Blood 3.7 mmol/L (3.5-5.5); Total Protein, Blood 7.2 g/dL (6.4-8.2)
[2022-07-22 05:17] LABS: Base Excess Venous 0.5 mmol/L; Bicarbonate Venous 23.6 mmol/L (24.0-30.0); PCO2 Venous 77.9 mmHg (38-42); pH Blood Venous 7.18 (7.34-7.37)
[2022-07-22 05:18] LABS: PO2 Venous 32.1 mmHg (38-42)
--- NOTE | 2022-07-22 05:52 | NUR ---
PT UPDATE: RT ATTEMPTED MULTIPLE TIMES TO COLLECT ABG THIS MORNING, BUT ENDED UP COLLECTING A VBG INSTEAD WITH A CRITICAL VALUE OF pH 7.18 AND PCO2-77.9. DR CEJA CALLED AND UPDATED AT 0512 AND ORDERS RECIEVED FOR THE INSPIRATORY PRESSURE TO BE INCREASED TO 20 AND FOR A REPEAT VBG AT 0800.
--- NOTE | 2022-07-22 06:17 | NUR ---
SHIFT SUMMARY: PT REMAINS ON THE BIPAP WITH CURRENT SETTINGS OF 20/6, RATE-14, AND FIO2- 40%. THROUGHOUT THE SHIFT THE PT HAS BEEN FIGHTING WITH THE BIPAP MASK AND PERIODICALLY TAKING OFF THE MASK AND PULLING AT NGT AND DIALYSIS CATHETER. DRING THE 0400 ASSESSMENTS, IT WAS NOTED THAT THE PT WAS PURSED-LIP BREATHING AND MORE LETHARGIC THAN THE BEGINNING OF THE SHIFT. THE PT WAS HAVING DIFFICULTY FOLLOWING COMMANDS AND KEEPING EYES OPEN DURING CONVERSATIONS. ABG FOR THE AM DRAWN AT THIS TIME; MULTIPLE ATTEMPTS BY RT TO OBTAIN ABG, BUT VBG COLLECTED INSTEAD D/T DIFFICULT STICK. CRITICAL VBG RESULTS OF pH 7.18 AND PCO2 77.9. BIPAP PLACED ON PT AFTER ORAL CARE AND SETTINGS ADJUSTED BY RT PER DR. CEJA. DUE TO PT CONTINUOUSLY PULLING AT VITAL LINES/CORDS AND NOT BEING ABLE TO BE REDIRECTED, PT WAS PLACED IN BSWR AT 0500. AFTER REPOSITIONING, PT IS NOW SLEEPING IN BED AND TOLERATING BIPAP MASK. LEVOPHED GTT 15 MCG/MIN, PROTONIX DRIP 10 MLS/HR, AND OCTREOTIDE 25 MLS/HR. PT HR 70'S AND SBP 110'S WITH MAP 65<. PT HAD 900 MLS OUTPUT FROM RECTAL TUBE THIS SHIFT. NOSE PROTECTIVE DEVICE PLACED TO PREVENT SKIN BREAKDOWN FROM BIPAP MASK THIS SHIFT. 93 MLS ON BLADDER SCAN THIS SHIFT. 02 LEVELS MAINTAINING 96<. WILL CONTINUE TO MONITOR CLOSELY UNTIL ONCOMING NURSE ARRIVES.
--- NOTE | 2022-07-22 07:26 | NUR ---
ASSUME CARE: I have assumed care of this patient.
[2022-07-22 08:27] LABS: Base Excess Venous -0.5 mmol/L; Bicarbonate Venous 23.7 mmol/L (24.0-30.0); PCO2 Venous 59.2 mmHg (38-42)
[2022-07-22 08:28] LABS: pH Blood Venous 7.26 (7.34-7.37)
[2022-07-22 15:08] LABS: A/G RATIO 1.4 (0.7-1.7); ALBUMIN 3.9 g/dL (2.9-4.4); ALPHA-1-GLOBULIN 0.2 g/dL (0.0-0.4); ALPHA-2-GLOBULIN 0.4 g/dL (0.4-1.0); BETA GLOBULIN 0.7 g/dL (0.7-1.3); GAMMA GLOBULIN 1.4 g/dL (0.4-1.8); GLOBULIN, TOTAL 2.7 g/dL (2.2-3.9); M-SPIKE Not Observed g/dL (Not Observed); PROTEIN, TOTAL, SERUM 6.6 g/dL (6.0-8.5)
--- NOTE | 2022-07-22 17:07 | NUR ---
INTUBATION: 1656: 4 mg versed pushed 1656: 50 mg propofol pushed by Dr Liz 1700: difficult intubation by Dr Liz. 8.0 initially 27cm at teeth. positive color change, positive breath sound on right 1702: 50 mg propofol pushed again by Dr Liz due to difficult bagging 1702: pulled back to 24cm at teeth 1703: 1mg atropine pushed for HR of 44 1720: 10mg of rocuronium pushed; pt not ventilating on ventilator
[2022-07-22 17:08] LABS: ANTIMYELOPEROXIDASE (MPO) ABS <0.2 units (0.0-0.9); ANTIPROTEINASE 3 (PR-3) ABS <0.2 units (0.0-0.9); ATYPICAL PANCA <1:20 titer (Neg:<1:20); CYTOPLASMIC (C-ANCA) <1:20 titer (Neg:<1:20); PERINUCLEAR (P-ANCA) <1:20 titer (Neg:<1:20)
[2022-07-22 18:55] LABS: PCO2 Arterial 56.4 mmHg (35-45); PO2 Arterial 86.6 mmHg (80-100)
--- NOTE | 2022-07-22 19:25 | NUR ---
SHIFT SUMMARY: NEURO: pt lethargic today. Prior to intubation, she was restless, aggitated, pulling off BIPAP and difficult to reorient. She was intermittantly oriented to the hospital. Moving all extremities and sliding herself down to the end of bed. Propofol currently running at 35. CARDIAC: SR, then Sinus timothy after precedex started. Levophed currently at 2mcg/min. RESPIRATORY: pt not tolerating BIPAP well. She was intubated at 1700. See intubation note. GI/: 3L off with dialysis. 1200 mls out of rectal tube today. Anuric PSYCH/SOCIAL: pt's notified of intubation by RN. family at bedside this AM and supportive of pt.
--- NOTE | 2022-07-22 19:30 | NUR ---
ASSUMED CARE PATIENT LYING IN BED INTUBATED AND SEDATED. NO FAMILY AT BEDSIDE. LEVOPHED @ 2MCG/MIN, PROPOFOL @ 30MCG/KG/MIN, PRECEDEX OFF AND DISCONNECTED. SEE ICU FLOWSHEET FOR OTHER GTTS AND RATES. VSS EXCEPT FOR JESUS IN 40'S. NGT CLAMPED. BEDSIDE REPORT COMPLETED WITH REINIER FLETCHER.
[2022-07-22 21:35] LABS: Hematocrit 24.1 % (33.0-51.0); Hemoglobin 8.1 g/dL (11.5-16.0)
[2022-07-23 04:21] LABS: BASOPHILS ABSOLUTE AUTO 0.07 K/mm3 (0.00-0.23); BASOPHILS PERCENT AUTO 1 % (0-2); EOSINOPHILS ABSOLUTE AUTO 0.19 K/mm3 (0.00-0.68); EOSINOPHILS PERCENT AUTO 1 % (0-6); Hemoglobin 7.8 g/dL (11.5-16.0); IMMATURE GRAN ABSOLUTE AUTO 0.41 K/mm3 (0.00-0.10); IMMATURE GRAN PERCENT AUTO 3 % (0-1); LYMPHOCYTES ABSOLUTE AUTO 2.33 K/mm3 (0.84-5.20); LYMPHOCYTES PERCENT AUTO 16 % (21-46); MONOCYTES ABSOLUTE AUTO 1.85 K/mm3 (0.16-1.47); MONOCYTES PERCENT AUTO 13 % (4-13); Mean Corpuscular HGB Conc 32.5 g/dL (31.5-36.5); Mean Corpuscular Volume 114 fL (80-100); Mean Platelet Volume 10.9 fL (9.1-12.4); NEUTROPHILS ABSOLUTE AUTO 9.75 K/mm3 (1.96-9.15); NEUTROPHILS PERCENT AUTO 67 % (41-73); NRBC ABSOLUTE 0.06 K/mm3 (0.00-0.02); NRBC Auto 0.4 /100 WBC (0.0-0.2); Platelet Count 105 K/mm3 (150-400); RDW Coefficient Variation 19.6 % (11.7-14.2); Red Blood Cell Count 2.11 M/mm3 (3.80-5.20)
[2022-07-23 04:35] LABS: International Normalized Ratio 1.57
[2022-07-23 04:44] LABS: Albumin, Blood 3.3 g/dL (3.4-5.0); Anion Gap 9 mmol/L (6-16); Blood Urea Nitrogen 19 mg/dL (8-24); Bun/Creatinine Ratio 4.9 (12.0-20.0); CO2, Blood 27 mmol/L (21-32); Calcium, Blood 9.1 mg/dL (8.5-10.1); Chloride, Blood 101 mmol/L (98-108); Creatinine, Blood 3.85 mg/dL (0.40-1.00); Glomerular Filtration Rate 13 (60-); Glucose, Blood 140 mg/dL (70-99); Phosphorus, Blood 2.8 mg/dL (2.5-4.9); Potassium, Blood 3.5 mmol/L (3.5-5.5); Sodium, Blood 137 mmol/L (136-145)
--- NOTE | 2022-07-23 05:38 | NUR ---
SHIFT SUMMARY PATIENT REMAINS INTUBATED AND SEDATED. PROPOFOL AND LEVOPHED INCREASED, SEE FLOWSHEET FOR RATES. PATIENT VENTILATED VERY POORLY WITH TURNS. REQUIRED TIME TO RECOVER. NO OUTPUT FROM THE RECTAL TUBE. PATIENT BEGAN GRIMACING AND INCREASED SHIFTING/TENSION IN BED. MEDICATED WITH FENTANYL 50MCG IV X 1. NO SECRETIONS THROUGH ETT, BUT BLOOD REMAINS IN ORAL CAVITY WITH NO SIGNS OF ACTIVE BLEEDING. NO URINE OUTPUT. NO OTHER EVENTS DURING SHIFT.
--- NOTE | 2022-07-23 08:37 | NUR ---
PT INTUBATED AND SEDATED WITH PROPOFOL. ON LEVOPHED. NG CLAMPED. 240ML RESIDUAL. PT TO HAVE EGD TODAY AND DIALYSIS. SLIGHT GRIMACE TO PAINFUL STIMULUS. PEAK PRESSURING WITH ANY REPOSITIONING AND TAKE AWHILE TO RECOVER. DOES NOT DESAT DURING THIS TIME. TIDAL VOLUME INCREASED BY RT THIS AM. NO SIGN OF DISTRESS NOW.
--- NOTE | 2022-07-23 10:37 | NUR ---
Spiritual Care Visit. Nurse Request. Pt. is intubated and not reponsive. SO is present and welcomes my visit. SO verbalizes optimism, but verbalizs also that he is awre that a procedure today will inform and clarify her prognosis. Listen empthetically with a calming presence. Established rapport with SO. SO welcomed another visit.
--- NOTE | 2022-07-23 18:17 | NUR ---
SUMMARY PT INTUBATED AND SEDATED WITH PROPOFOL. PT SLIGHTLY GRIMACES TO PAIN. CLAMPS MOUTH DOWN WITH ANY ORAL CARE. UNABLE TO DO SEDATION VACATION DUE TO PT HAVING DIALYSIS AND EGD TODAY. ON LEVOPHED GTT. HAD TO INCREASE LEVOPHED DURING DIALYSIS BUT NOW GOING DOWN AGAIN. WAS IN TODAY AND UPDATED. NO OTHER CHANGES THIS SHIFT.
--- NOTE | 2022-07-23 18:22 | NUR ---
07/23/22 1822 Jhonny Card PROCEDURE IN ICU 15 INTUBATED. RX TO BE DONE BY FUR WEIGHER IN NEEDING ADJUSTMENT
--- NOTE | 2022-07-23 19:15 | NUR ---
ASSUMPTION OF CARE PT REMAINS INTUBATED WITH VENT SETTINGS AC/VC 18/400/5/50%. SHE IS RECEIVING PROPOFOL 40MCG/KG/MIN, LEVOPHED 12MCG/MIN, PROTONIX GTT, AND OCTREOTIDE GTT. WITH SEDATION ON, PT WITHDRAWS FROM PAINFUL STIMULI AND GRIMACES WITH NOXIOUS STIMULI. EGD COMPLETED BEFORE SHIFT CHANGE. NGT REMOVED FOR SCOPE. PER SRINIVASAN TA TO PLACE OGT. OGT PLACED, GASTRIC CONTENT RETURN AND AUSCULTATION. BOWEL TONES HYPOACTIVE. PT OLIGURIC. RECTAL TUBE IN PLACE WITH LARGE AMOUNT OF LIGHT BROWN DRAINAGE IN COLLECTION BAG AND TUBING. SINUS RHTYHM ON MONITOR WITH RATE IN 60S. SBP 130S, LEVOPHED TITRATED TO 10MCG/MIN. PULSES FAINT. PT EDEMATOUS THROUGHOUT. SEE SHIFT ASSESSMENT.
[2022-07-23 21:29] LABS: Hematocrit 23.9 % (33.0-51.0); Hemoglobin 8.1 g/dL (11.5-16.0)
--- NOTE | 2022-07-23 22:38 | NUR ---
SEDATION VACATION PROPOFOL ON STANDBY FOR APPROX 2HRS TOTAL. FACIAL GRIMACING AT REST, OCCASIONAL HEAD MOVEMENT SIDE TO SIDE. WHEN ASKED TO OPEN EYES, EYELIDS FLICKER BUT DO NOT OPEN. MEDICATED WITH FENTANYL PER EMAR. AFTER THIS, PT APPEARS MORE RELAXED. EYELIDS FLICKER BUT DO NOT OPEN TO COMMAND. SHE DOES NOT FOLLOW ANY COMMANDS WITH EXTREMITIES. WITH PAINFUL STIMULI, PT OPENS EYES WIDE BUT DOES NOT TRACK MOVEMENTS. UPPER EXTREMITIES WITHDRAW, LOWER EXTREMITIES MAKE MINIMAL MOVEMENT. RR INCREASED TO 24-30 WITH MORE FREQUENT COUGHING. PROPOFOL RESTARTED AT 20MCG/KG/MIN.
[2022-07-24 04:12] LABS: Hematocrit 24.8 % (33.0-51.0); Hemoglobin 8.4 g/dL (11.5-16.0); Mean Corpuscular HGB 37.3 pg (26.0-34.0); Mean Corpuscular HGB Conc 33.9 g/dL (31.5-36.5); Mean Corpuscular Volume 110 fL (80-100); Mean Platelet Volume 10.5 fL (9.1-12.4); NRBC ABSOLUTE 0.05 K/mm3 (0.00-0.02); NRBC Auto 0.2 /100 WBC (0.0-0.2); Platelet Count 106 K/mm3 (150-400); RDW Coefficient Variation 19.7 % (11.7-14.2); RDW Standard Deviation 78.6 fL (35.1-46.3); Red Blood Cell Count 2.25 M/mm3 (3.80-5.20); White Blood Cell Count 20.17 K/mm3 (4.00-11.30)
[2022-07-24 04:29] LABS: Albumin, Blood 3.6 g/dL (3.4-5.0); Anion Gap 11 mmol/L (6-16); Blood Urea Nitrogen 24 mg/dL (8-24); Bun/Creatinine Ratio 5.2 (12.0-20.0); CO2, Blood 24 mmol/L (21-32); Calcium, Blood 9.3 mg/dL (8.5-10.1); Chloride, Blood 99 mmol/L (98-108); Creatinine, Blood 4.66 mg/dL (0.40-1.00); Glomerular Filtration Rate 11 (60-); Glucose, Blood 142 mg/dL (70-99); Magnesium, Blood 1.9 mg/dL (1.6-2.4); Phosphorus, Blood 3.4 mg/dL (2.5-4.9); Potassium, Blood 3.4 mmol/L (3.5-5.5); Sodium, Blood 134 mmol/L (136-145)
--- NOTE | 2022-07-24 05:15 | NUR ---
SHIFT SUMMARY PT REMAINS INTUBATED WITH VENT SETTINGS AC/VC 18/400/5/50%. SHE IS RECEIVING PROPOFOL 20MCG/KG/MIN, LEVOPHED 8MCG/MIN, PROTONIX AND OCTREOTIDE. PT GRIMACES AND MOVES HEAD WITH NOXIOUS STIMULI. EXTREMITIES WITHDRAW FROM PAINFUL STIMULI AND OCCASIONALLY MAKE SMALL INDEPENDENT MOVEMENTS. COUGH/GAG INTACT. NSR ON MONITOR WITH RATE IN 60S. LEVOPHED TITRATED TO MAINTAIN MAP >65. PULSES FAINT THROUGHOUT. ORAL CAVITY CONTINUES TO BE SOMEWHAT BLOODY AND APPEARS TO BE FROM A LOOSE BOTTOM TOOTH UNDER ETT BITE BLOCK. SMALL AMOUNT OF WHITE/BLOOD TINGED ETT SECRETIONS. LUNGS COARSE, DIMINISHED IN BASES. TUBE FEEDING INFUSING VIA OGT. VHP STARTED AT 10ML/HR WITH Q4 65ML WATER FLUSHES. BOWEL TONES HYPOACTIVE. RECTAL TUBE REMAINS PATENT WITH LARGE AMOUNT OF OUTPUT. NO VISIBLE URINE OUTPUT THIS SHIFT. PT DID HAVE BLOOD BETWEEN LABIA THAT APPEARED TO BE MENSES. AFEBRILE THROUGHOUT SHIFT. WILL REPORT TO ONCOMING RN.
[2022-07-24 05:18] LABS: BAND PERCENT MAN 1 % (0-8); BASOPHILS PERCENT MAN 0 % (0-2); EOSINOPHILS PERCENT MAN 2 % (0-6); LYMPHOCYTES ABSOLUTE MAN 1.61 K/mm3 (0.84-5.20); LYMPHOCYTES PERCENT MAN 8 % (21-46); METAMYELOCYTE PERCENT MAN 1 % (0-0); MONOCYTES ABSOLUTE MAN 1.81 K/mm3 (0.16-1.47); MONOCYTES PERCENT MAN 9 % (4-13); MYELOCYTE PERCENT MAN 1 % (0-0); NEUTROPHILS ABSOLUTE MAN 15.93 K/mm3 (1.96-9.15); SEG NEUTROPHILS PERCENT MAN 78 % (41-73); TOTAL CELLS COUNTED 100
--- NOTE | 2022-07-24 07:34 | NUR ---
ASSUMED CARE OF PT AT 0700 PT SEDATED AND VENTILATED 18/400/5/50% SANDOSTATIN AT 50 MCG PROTONIX AT 10MG/HR LEVO AT 8 MCG PROP AT 20 MCG, CHANGED TO 30 MCG UPON ASSESSMENT OF PT ORAL AREA. 2 TEETH MISPLACED BY UNKNOWN SOURCE. ONE TOOTH TAKEN EASILY DUE TO HIGH CHANCE OF TOOTH ENTERING ESOPHAGUS. PT CONTINUES TO BIT DOWN ON VENT TUBE, UNABLE TO SUCTION AT THIS TIME. PROP CHANGED TO SEDATE PT FURTHER TO DO ORAL CARE AND ASSESS TRAUMA. RECTAL TUBE IN PLACE. NO ROE CATH AT THIS TIME. OG TUBE IN PLACE WITH FEED AT 25 MLS/HR. SEE ASSESSMENT FOR FURTHER INFORMATION.
--- NOTE | 2022-07-24 10:35 | NUR ---
Spiritual Care Visit. w/Spouse. A quick update. Reestablished rapport. Spouse is engaged and aware of Pts. condition. Spouse verbalized gratitude for the spiritual care visit. This java technical architect will reconnect with spouse later in the day.
[2022-07-24 16:32] LABS: Vancomycin, Random 9.4 ug/mL
--- NOTE | 2022-07-24 17:44 | NUR ---
END OF SHIFT SUMMARY PT SEDATED AND VENTILATED.VENT AT 16/400/5/50%. PROP AT 35 MCG/KG/MIN, LEVO AT 10 MCG/KG/MIN. TF RUNNING AT GOAL RATE OF 40 MLS/HR. DIALYSYS SUCCESSFUL TODAY. NO URINE OUTPUT THIS SHIFT. LUNG SOUNDS COARSE THROUGHOUT AND DIMISHED AT BASES. B/P AND HR WNL WITH SHORT TURNS OF HYPOTENSION WITH DIALYSIS TODAY. PT RESPONDS TO NOXIOUS STIMULI. NO HEAD SHAKING PURPOSFUL MOVEMENT.
--- NOTE | 2022-07-24 18:11 | NUR ---
TF INCREASED TO GOAL RATE 40 MLS/HR AT 1515.
--- NOTE | 2022-07-24 19:35 | NUR ---
ASSESSMENT/ASSUMED CARE PT INTUBATED [facility]. PT SEDATED ON PROPOFOL. LUNGS COARSE AND DECREASED. VENT SETTINGS AC/VC 18/40/5/40%. HEART RATE REGULAR. BP STABLE ON LEVOPHED AT 10 MCQ/MIN. BT+HYPOACTIVE. OG WITH TUBE FEED VITAL HP AT GOAL RATE OF 40 ML/HR WITH WATER 65 ML Q4HR. RECTAL TUBE WITH GREEN/BROWN LIQUID STOOL. PICC LINE TO RIGHT UPPER ARM, DRSG CD&I. SITE CLEAR. NS AT 10 ML/HR, PROPOFOL AT 35 MCQ/KG/MIN AND LEVOPHED AT 10 MCQ/MIN. DIALYSIS CATH TO RIGHT IJ WITH DRSG INTACT. SITE CLEAR. PT REPOSITIONED AND ORAL CARE DONE.
[2022-07-25 03:31] LABS: Hematocrit 23.6 % (33.0-51.0); Mean Corpuscular HGB 37.6 pg (26.0-34.0); Mean Corpuscular HGB Conc 33.9 g/dL (31.5-36.5); Mean Corpuscular Volume 111 fL (80-100); Mean Platelet Volume 10.7 fL (9.1-12.4); NRBC ABSOLUTE 0.04 K/mm3 (0.00-0.02); NRBC Auto 0.2 /100 WBC (0.0-0.2); Platelet Count 81 K/mm3 (150-400); RDW Coefficient Variation 19.7 % (11.7-14.2); RDW Standard Deviation 79.6 fL (35.1-46.3); Red Blood Cell Count 2.13 M/mm3 (3.80-5.20)
[2022-07-25 03:49] LABS: Albumin, Blood 3.6 g/dL (3.4-5.0); Anion Gap 7 mmol/L (6-16); Blood Urea Nitrogen 22 mg/dL (8-24); CO2, Blood 29 mmol/L (21-32); Calcium, Blood 9.3 mg/dL (8.5-10.1); Chloride, Blood 102 mmol/L (98-108); Creatinine, Blood 3.69 mg/dL (0.40-1.00); Glomerular Filtration Rate 14 (60-); Glucose, Blood 147 mg/dL (70-99); Magnesium, Blood 1.9 mg/dL (1.6-2.4); Phosphorus, Blood 2.5 mg/dL (2.5-4.9); Potassium, Blood 3.4 mmol/L (3.5-5.5); Sodium, Blood 138 mmol/L (136-145)
[2022-07-25 04:46] LABS: BAND PERCENT MAN 1 % (0-8); BASOPHILS PERCENT MAN 0 % (0-2); EOSINOPHILS ABSOLUTE MAN 0.33 K/mm3 (0.00-0.68); EOSINOPHILS PERCENT MAN 2 % (0-6); LYMPHOCYTES ABSOLUTE MAN 1.18 K/mm3 (0.84-5.20); LYMPHOCYTES PERCENT MAN 7 % (21-46); MONOCYTES ABSOLUTE MAN 1.35 K/mm3 (0.16-1.47); MONOCYTES PERCENT MAN 8 % (4-13); NEUTROPHILS ABSOLUTE MAN 14.02 K/mm3 (1.96-9.15); SEG NEUTROPHILS PERCENT MAN 82 % (41-73); TOTAL CELLS COUNTED 100
--- NOTE | 2022-07-25 06:01 | NUR ---
SHIFT SUMMARY: PT REMAINS ON VENT, NO VENT CHANGES. ACVC 18 TV 400 PEEP 5 FiO2 40%. PROPOFOL STILL AT 35, LEVOPHED AT 8, DOWN FROM 10. HAD TITRATED DOWN TO 6 BUT INCREASED TO 8 TO KEEP MAP GREATER THAN 65. BLEEDING FROM MOUTH DUE TO TOOTH REMOVAL. NOTED MODERATE DARK RED VAGINAL BLEEDING. RECTAL TUBE IN PLACE AND DRAINING, 900ML OUT THIS SHIFT. DIALYSIS DRESSING CHANGED. TURNED SIDE TO SIDE USING WEDGE THROUGHOUT NIGHT. BILATERAL SOFT WRIST RESTRAINTS IN PLACE. BED BATH GIVEN, TOLERATED FAIRLY WITH COUGHING.
--- NOTE | 2022-07-25 07:15 | NUR ---
ASSUMPTION OF CARE PT REMAINS INTUBATED WITH VENT SETTINGS AC/VC 18/350/5/40%. SHE IS RECEIVING PROPOFOL 35MCG/KG/MIN AND LEVOPHED 8MCG/MIN. PT GRIMACES AND MOVES HEAD TO NOXIOUS STIMULI. LIMBS WITHDRAW FROM PAINFUL STIMULI. LUNGS ARE COARSE AND DIMINISHED IN BASES. TUBE FEEDING INFUSING AT GOAL RATE VIA OGT. RESIDUALS 460ML, TUBE FEEDING ON STANDBY. BOWEL TONES HYPOACTIVE. LARGE AMOUNT OF GREEN LIQUID STOOL IN RECTAL TUBE COLLECTION BAG. PT IS ANURIC. DR CORADO AT BEDSIDE FOR EVAL. DR CLINE AT BEDSIDE FOR EVAL. PLAN FOR DIALYSIS TODAY.
--- NOTE | 2022-07-25 11:47 | NUR ---
UPDATE DIALYSIS RNS AT BEDSIDE, PROCEDURE ALMOST COMPLETE. LEVOPHED TITRATED TO 14MCG/MIN TO MAINTAIN MAP >65.
[2022-07-25 12:47] LABS: Vancomycin, Random 13.3 ug/mL
--- NOTE | 2022-07-25 17:56 | NUR ---
SEDATION VACATION PROPOFOL ON STANDBY FOR APPROX 2HRS. AFTER 1HR, RT CHANGED VENT SETTINGS TO SPONT PS 20/PEEP 5. RR 15-24. TV 330S-420S. PT BEGAN COUGHING AND GRIMACING, MEDICATED PER EMAR. PT TOLERATING WELL. PT ON SPONT FOR APPROX 1HR. SWITCHED BACK TO AC/VC 18/350/5/40% AND PROPOFOL RESTARTED TO GO TO IMAGING.
--- NOTE | 2022-07-25 18:17 | NUR ---
SHIFT SUMMARY PT REMAINS INTUBATED WITH VENT SETTINGS AC/VC 18/350/5/40%. PT RECEIVING PROPOFOL 35MCG/KG/MIN, LEVOPHED 8MCG/MIN. COUGH/GAG INTACT. FACIAL GRIMACING WITH NOXIOUS STIMULI, WITHDRAWS EXTREMITIES TO PAINFUL STIMULI. LUNGS COARSE, DIMINISHED IN BASES. TUBE FEEDING INFUSING AT GOAL RATE. BOWEL TONES HYPOACTIVE. RECTAL TUBE IN PLACE DRAINING LIQUID GREEN/BROWN STOOL. SINUS RHTYHM ON MONITOR WITH RATE 60S-80S. FAINT PULSES. PT REMAINS ANURIC. DIALYSIS DONE THIS AM. CHEST CT COMPLETED THIS AFTERNOON. PER RADIOLOGY RECOMMENDATION AND DR LAY, PICC RETRACTED TO 4CM EXPOSURE. WILL REPORT TO ONCOMING RN.
--- NOTE | 2022-07-25 22:54 | NUR ---
ASSUMED CARE: PT ON ACVC 18, TV 400, PEEP 5, FiO2 50%. PROPOFOL AT 35, LEVO AT 10, TUBE FEEDS AT 40 WITH 65ML FLUSH Q4H. RECTAL TUBE IN PLACE, OGT IN PLACE.
[2022-07-26 03:18] LABS: Hematocrit 23.3 % (33.0-51.0); Hemoglobin 7.8 g/dL (11.5-16.0); Mean Corpuscular HGB 37.1 pg (26.0-34.0); Mean Corpuscular HGB Conc 33.5 g/dL (31.5-36.5); Mean Corpuscular Volume 111 fL (80-100); Mean Platelet Volume 11.2 fL (9.1-12.4); NRBC ABSOLUTE 0.04 K/mm3 (0.00-0.02); NRBC Auto 0.2 /100 WBC (0.0-0.2); Platelet Count 79 K/mm3 (150-400); RDW Coefficient Variation 19.7 % (11.7-14.2); RDW Standard Deviation 76.8 fL (35.1-46.3); White Blood Cell Count 18.02 K/mm3 (4.00-11.30)
[2022-07-26 03:34] LABS: Albumin, Blood 3.2 g/dL (3.4-5.0); Albumin/Globulin Ratio 1.1 (0.8-1.8); Bilirubin, Direct 3.3 mg/dL (0.0-0.3); Bilirubin, Indirect 1.2 mg/dL (0.1-0.7); Bilirubin, Total 4.5 mg/dL (0.1-1.0); Bun/Creatinine Ratio 7.8 (12.0-20.0); Creatinine, Blood 3.09 mg/dL (0.40-1.00); Magnesium, Blood 2.1 mg/dL (1.6-2.4); Phosphorus, Blood 3.6 mg/dL (2.5-4.9); Potassium, Blood 3.9 mmol/L (3.5-5.5); Total Protein, Blood 6.2 g/dL (6.4-8.2)
--- NOTE | 2022-07-26 03:59 | NUR ---
CALLED DR. JOHNSON TO INFORM HIM THAT CXR IMAGING IS AVAILABLE, RT HAS INCREASED PEEP TO 10 AND THE FiO2 IS 60%. ALSO INFORMED HIM THAT HGB IS 7.[address] JOHNSON STATED THAT HE WILL LOOK AT CXR AND TO HOLD OFF ON BLOOD TRANSFUSION AT THIS TIME.
[2022-07-26 04:20] LABS: BAND PERCENT MAN 2 % (0-8); BASOPHILS ABSOLUTE MAN 0.18 K/mm3 (0.00-0.23); BASOPHILS PERCENT MAN 1 % (0-2); EOSINOPHILS ABSOLUTE MAN 0.36 K/mm3 (0.00-0.68); EOSINOPHILS PERCENT MAN 2 % (0-6); LYMPHOCYTES ABSOLUTE MAN 1.26 K/mm3 (0.84-5.20); LYMPHOCYTES PERCENT MAN 7 % (21-46); METAMYELOCYTE ABSOLUTE MAN 0.36 K/mm3 (0.00-0.00); METAMYELOCYTE PERCENT MAN 2 % (0-0); MONOCYTES ABSOLUTE MAN 0.36 K/mm3 (0.16-1.47); MONOCYTES PERCENT MAN 2 % (4-13); MYELOCYTE ABSOLUTE MAN 0.36 K/mm3 (0.00-0.00); MYELOCYTE PERCENT MAN 2 % (0-0); NEUTROPHILS ABSOLUTE MAN 15.13 K/mm3 (1.96-9.15); SEG NEUTROPHILS PERCENT MAN 82 % (41-73); TOTAL CELLS COUNTED 100
--- NOTE | 2022-07-26 05:53 | NUR ---
PT O2 SAT DROPPED INTO UPPER 80s. RT NOTIFIED AND FiO2 INCREASED TO 60%, PEEP INCREASED TO 10. PER MD, TITRATE LEVO TO ACHIEVE MAP GREATER THAN 60. OBTAINED CXR. PROPOFOL INFUSING AT 35, LEVO INFUSING AT 2. FLEXISEAL IN PLACE, DRAINED ABOUT 1900 TOTAL THIS SHIFT. TUBE FEEDS CONTINUOUS THROUGH OGT AT 40 WITH 65 WATER FLUSH Q4H. HGB 7.8 THIS AM, NO ORDER TO TRANSFUSE AT THIS TIME PER MD. BILATERAL SOFT WRIST RESTRAINTS IN PLACE. LACTULOSE CHANGED TO BID PER MD.
--- NOTE | 2022-07-26 09:52 | NUR ---
PT INTUBATED AND SEDATED WITH PROPOFOL. GRIMACES TO PAIN AND BITES DOWN ON ORAL CARE SPONGES. ON LEVOPHED GTT. PT IS EDEMATOUS T/O WITH SMALL AMT OF WEEPING STARTING ON R ARM. PT GETTING DIALYSIS NOW. AT BEDSIDE.
--- NOTE | 2022-07-26 11:08 | NUR ---
Spiritual Care Visit. Pt. is intubated, non responsive, and currently on mobile dialysis. Spouse is present, as is aircraft launch and recovery technician. Focus of spiritual care is on the spouse. Spouse welcomes my visit, and rapoprt is re-established. Spouse displayed evidewnce of both optimism and realism regarding the Pt. Spouse and Pts. son have been tracking with all diagnosis and prognosis reports. Spouse is currently recovering from alcholoism, but is a man of janny. discussed issues and opportunities for spiritual based recovery programs in his area. ([place]). Spouse asked to have his put in the hospital prayer chain. Pastorally prayed for Pt. in chapel and left a prayer card on spouses behalf. Spouse verbalized gratitude for the spiritual care visit.
[2022-07-26 14:20] LABS: Vancomycin, Random 14.1 ug/mL
--- NOTE | 2022-07-26 18:35 | NUR ---
SUMMARY PT INTUBATED AND SEDATED WITH PROPOFOL. PROPOFOL OFF THIS EVENING FOR SEDATION VACATION. PT ATTEMPTED TO OPEN EYE'S TO VOICE AND LOCALIZES PAIN. EYE'S ARE SWOLLEN MAKING IT DIFFICULT TO OPEN THEM. DIALYSIS TODAY AND PT TOLERATED WELL. DID NOT HAVE TO INCREASE LEVOPHED TODAY. ETT WAS PULLED OUT 2CM TODAY BY RT PER DR. ACEVEDO. PT WAS GIVEN ROCURONIUM FOR THIS PROCEDURE SHE CLAMPS TEETH DOWN AND UNABLE TO MOVE BITE BLOCK. SEDATION WAS INCREASED DURING THIS TIME THEN BROUGHT BACK DOWN AFTER ROCURONIUM WORE OFF. NO OTHER CHANGES TODAY.
--- NOTE | 2022-07-26 19:00 | NUR ---
ASSUMED CARE REPORT RECEIVED FROM REINIER ROSE. PATIENT INTUBATED AND SEDATED. NO FAMILY AT BEDSIDE. PROPOFOL @ 15 MCG/KG/MIN, LEVOPHED @ 2 MCG/MIN, AND NS TKO. VHP INF TO NGT @ GOAL RATE 40ML/HR WITH 65 ML Q4H WATER FLUSHES. RECTAL TUBE PATENT AND DRAINING LIQUID BROWN STOOL TO GRAVITY. NO FAMILY OR VISITORS AT BEDSIDE.
--- NOTE | 2022-07-27 05:25 | NUR ---
ASSUMED CARE REPORT RECEIVED FROM SONIA HILLS. PT REMAINS INTUBATED WITH VENT SETTINGS AC/VC 18/400/12/45%. SHE IS RECEIVING PROPOFOL 20MCG/KG/MIN AND LEVOPHED 3MCG/MIN. TUBE FEEDING INFUSING AT GOAL RATE. RECTAL TUBE PATENT AND DRAINING LIGHT BROWN LIQUID STOOL.
[2022-07-27 05:53] LABS: Albumin, Blood 3.1 g/dL (3.4-5.0); Anion Gap 9 mmol/L (6-16); Blood Urea Nitrogen 35 mg/dL (8-24); Bun/Creatinine Ratio 12.7 (12.0-20.0); CO2, Blood 29 mmol/L (21-32); Calcium, Blood 9.5 mg/dL (8.5-10.1); Chloride, Blood 100 mmol/L (98-108); Creatinine, Blood 2.76 mg/dL (0.40-1.00); Glomerular Filtration Rate 20 (60-); Glucose, Blood 163 mg/dL (70-99); Phosphorus, Blood 4.3 mg/dL (2.5-4.9); Potassium, Blood 3.9 mmol/L (3.5-5.5); Sodium, Blood 138 mmol/L (136-145)
--- NOTE | 2022-07-27 06:13 | NUR ---
SUMMARY NO ACUTE CHANGES SINCE ASSUMING CARE AT 0530. LEVOPHED INFUSING AT 6MCG/MIN, PROPOFOL AT 20MCG/KG/MIN. PT HAD 900ML LIQUID STOOL FROM RECTAL TUBE. WILL REPORT TO ONCOMING RN.
--- NOTE | 2022-07-27 09:00 | NUR ---
PT INTUBATED. OFF SEDATION FOR SEDATION VACATION. PT IS CALM, WILL OPEN EYE'S TO NAME. NO OTHER COMMANDS FOLLOWED. WILL GRIMACE TO PAINFUL STIMULUS AND WILL REACH WITH R HAND TOWARDS STIMULUS. GETTING DIALYSIS TODAY. NO SIGN OF DISTRESS, WILL LEAVE SEDATION OFF LONG PT TOLERATES.
[2022-07-27 11:52] LABS: BASOPHILS ABSOLUTE AUTO 0.16 K/mm3 (0.00-0.23); BASOPHILS PERCENT AUTO 1 % (0-2); EOSINOPHILS ABSOLUTE AUTO 0.01 K/mm3 (0.00-0.68); EOSINOPHILS PERCENT AUTO 0 % (0-6); Hematocrit 26.2 % (33.0-51.0); Hemoglobin 9.1 g/dL (11.5-16.0); IMMATURE GRAN ABSOLUTE AUTO 1.96 K/mm3 (0.00-0.10); IMMATURE GRAN PERCENT AUTO 6 % (0-1); LYMPHOCYTES ABSOLUTE AUTO 3.38 K/mm3 (0.84-5.20); LYMPHOCYTES PERCENT AUTO 10 % (21-46); MONOCYTES PERCENT AUTO 8 % (4-13); Mean Corpuscular HGB 37.4 pg (26.0-34.0); Mean Corpuscular HGB Conc 34.7 g/dL (31.5-36.5); Mean Corpuscular Volume 108 fL (80-100); NEUTROPHILS ABSOLUTE AUTO 25.05 K/mm3 (1.96-9.15); NEUTROPHILS PERCENT AUTO 76 % (41-73); NRBC ABSOLUTE 0.17 K/mm3 (0.00-0.02); NRBC Auto 0.5 /100 WBC (0.0-0.2); Platelet Count 144 K/mm3 (150-400); RDW Coefficient Variation 19.6 % (11.7-14.2); RDW Standard Deviation 75.7 fL (35.1-46.3); Red Blood Cell Count 2.43 M/mm3 (3.80-5.20); White Blood Cell Count 33.16 K/mm3 (4.00-11.30)
[2022-07-27 12:14] LABS: Vancomycin, Random 15.6 ug/mL
--- NOTE | 2022-07-27 18:11 | NUR ---
SUMMARY PT INTUBATED. HAS BEEN OFF SEDATION ALL DAY. TOLERATING THE VENT WELL. OPENING EYE'S SPONTANEOUSLY. WITHDRAWS FROM PAINFUL STIMULUS. NOT FOLLOWING ANY COMMANDS. LEVOPHED GTT. MIDODRINE STOPPED BY DR. ACEVEDO TODAY. HAD DIALYSIS AND TOLERATED WELL. NO OTHER CHANGES THIS SHIFT.
--- NOTE | 2022-07-27 20:04 | NUR ---
UPDATED DR. ACEVEDO CALLED DR. ACEVEDO TO TALK ABOUT THE PT'S LIQUID STOOL AND HAVING A RECTAL TUBE. PT HAS BEEN ON LACTULOSE BID WITH AN AMMONIA LEVEL OF 26 ON 07/25; NOW PT HAS BEEN STARTED ON BANATROL. DR. ACEVEDO OK WITH D/C'ING LACTULOSE AND BANATROL AT THIS TIME.
--- NOTE | 2022-07-27 21:24 | NUR ---
ASSUMED CARE. RESPONDS TO VERBAL STIMULI, WILL OPEN EYES, DOES NOT TRACK, PUPILS SLUGGLISH, WITHDRAWALS FROM PAINFUL STIMULI. SPONTANOUS BLE MOVEMENT. DOES NOT FOLLOW DIRECTIONS. LS DIM IN BASES, SUCTIONED OUT BLOODY TINGED SECRETIONS FROM ORAL CAVITY, LARGE AMOUNT. SCANT FROM ETT SUCTIONING. ACVC SETTINGS 18/400/12/40% SATS >65%. SINUS ON MONITOR. EDEMA 3+ IN BUE, BLE, AROUND ABDOMIN. LIGHT BANGURA LIQUID STOOL IN RECTAL TUBE. SKIN FRAGILE. REPOSITIONED.
[2022-07-28 03:29] LABS: Hematocrit 24.8 % (33.0-51.0); Hemoglobin 8.7 g/dL (11.5-16.0); Mean Corpuscular HGB 37.7 pg (26.0-34.0); Mean Corpuscular HGB Conc 35.1 g/dL (31.5-36.5); Mean Corpuscular Volume 107 fL (80-100); Mean Platelet Volume 10.6 fL (9.1-12.4); NRBC ABSOLUTE 0.16 K/mm3 (0.00-0.02); NRBC Auto 0.5 /100 WBC (0.0-0.2); Platelet Count 142 K/mm3 (150-400); RDW Coefficient Variation 19.5 % (11.7-14.2); RDW Standard Deviation 74.9 fL (35.1-46.3); Red Blood Cell Count 2.31 M/mm3 (3.80-5.20); White Blood Cell Count 33.55 K/mm3 (4.00-11.30)
[2022-07-28 03:48] LABS: Albumin, Blood 3.4 g/dL (3.4-5.0); Bilirubin, Direct 3.5 mg/dL (0.0-0.3); Bilirubin, Indirect 1.5 mg/dL (0.1-0.7); Bun/Creatinine Ratio 16.6 (12.0-20.0); Calcium, Blood 9.7 mg/dL (8.5-10.1); Creatinine, Blood 3.49 mg/dL (0.40-1.00); Globulin, Blood 3.5 g/dL (2.2-4.0); Phosphorus, Blood 5.2 mg/dL (2.5-4.9); Potassium, Blood 3.9 mmol/L (3.5-5.5); Total Protein, Blood 6.9 g/dL (6.4-8.2)
--- NOTE | 2022-07-28 06:29 | NUR ---
SHIFT SUMMARY: OPENS EYES TO VERBAL STIMULI, WITHDRAWL FROM PAINFUL STIMULI. VERY FAST AT REACHING FOR ETT TUBE WHEN HER RESTRAINTS ARE OFF. DOES NOT FOLLOW DIRECTIONS, SPONTANOUS EXTREMITITES MOVEMENT. LS CLEAR IN UPPER LOBES, DIM IN BASES, SUCTION IS SCANT FROM ETT TUBE, ORAL SUCTION HAS BLOOD TINGED BANGURA SECRETIONS. ACVC VENT SETTINGS CHANGED TO 18/400/10/40%. SINUS WITH FEW PVC'S ON MONITOR, HR IN THE 70-80'S. LEVOPHED TITRATED TO KEEP MAP >65 CURRENTLY AT 7MCQ/HR. ABD ROUND DISTENDED, FIRM, RECTAL TUBE WITH 800ML OF LIQUID BANGURA STOOL, STOPPED LACTOLOSE AND BANNANA FLAKES. BLOOD TINGED DRAINAGE VS DISCHARGE FROM VAGINAL AREA. TUBE FEED STILL INFUSING AT GOAL. NO OTHER CHANGES TO NOTE THIS SHIFT.
--- NOTE | 2022-07-28 10:55 | NUR ---
PT INTUBATED. NO SEDATION. 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 REACHES FOR ETT IF HANDS ARE UNRESTRAINED. TRIED TO COMMUNICATE WITH WRITING BUT HANDS ARE TOO SWOLLEN. NO DIALYSIS TODAY. BC TAKEN FROM HD CATH, PICC LINE, AND PERIPERHALLY DUE TO HIGH WBC. FENTANYL GIVEN WHEN PT GOT RESTLESS WITH GOOD RESULTS.
[2022-07-28 13:12] LABS: Vancomycin, Random 13.4 ug/mL
--- NOTE | 2022-07-28 18:19 | NUR ---
SUMMARY PT INTUBATED. NO SEDATION TODAY. PT AWAKE, CALM, AND ABLE TO FOLLOW COMMANDS. NODS YES AND NO APPROPRIATELY. GOT PT TO RECLINER CHAIR WITH LIFT TODAY AND PT TOLERATED WELL. NODS YES TO BEING UNCOMFORTABLE WITH THE ETT IN MOUTH, BUT NO TO PAIN. PEEP DOWN TO 8. NO OTHER CHANGES TODAY. NO SIGN OF DISTRESS.
--- NOTE | 2022-07-28 19:00 | NUR ---
ASSUMED CARE PT INTUBATED W/ SEDATION OFF. VENT SETTINGS 18/400/8/40%. SATS GREATER THAN 92% LUNG SOUNDS CLEAR W/ DIM BASES. MINIMAL ETT SECRETIONS. UNABLE TO COLLECT SPUTUM SAMPLE AT THIS TIME. LEVO PUT ON SB AT 2014. MAPS GREATER THAN 65. SBP 100'S. HR SR IN THE 70'S. RESPONDS TO VERBAL STIMULI. FOLLOWING COMMANDS. ABLE TO NOD YES/NO TO QUESTIONS. PT UNABLE TO WIGGLE R TOES, NO MOVEMENT NOTED ON R LEG DURING CARE. EDEMA IN HANDS/ARMS/BLE. HYPOACTIVE BT, DENIES NAUSEA. VHP 35ML/HR. RECTAL TUBE IN PLACE.
[2022-07-29 04:00] LABS: BASOPHILS ABSOLUTE AUTO 0.04 K/mm3 (0.00-0.23); BASOPHILS PERCENT AUTO 0 % (0-2); EOSINOPHILS ABSOLUTE AUTO 0.01 K/mm3 (0.00-0.68); EOSINOPHILS PERCENT AUTO 0 % (0-6); Hematocrit 23.8 % (33.0-51.0); Hemoglobin 7.9 g/dL (11.5-16.0); IMMATURE GRAN ABSOLUTE AUTO 0.64 K/mm3 (0.00-0.10); IMMATURE GRAN PERCENT AUTO 3 % (0-1); LYMPHOCYTES ABSOLUTE AUTO 2.47 K/mm3 (0.84-5.20); LYMPHOCYTES PERCENT AUTO 10 % (21-46); MONOCYTES ABSOLUTE AUTO 1.85 K/mm3 (0.16-1.47); MONOCYTES PERCENT AUTO 8 % (4-13); Mean Corpuscular HGB 35.9 pg (26.0-34.0); Mean Corpuscular HGB Conc 33.2 g/dL (31.5-36.5); Mean Corpuscular Volume 108 fL (80-100); Mean Platelet Volume 10.4 fL (9.1-12.4); NEUTROPHILS ABSOLUTE AUTO 19.74 K/mm3 (1.96-9.15); NEUTROPHILS PERCENT AUTO 80 % (41-73); NRBC ABSOLUTE 0.03 K/mm3 (0.00-0.02); NRBC Auto 0.1 /100 WBC (0.0-0.2); Platelet Count 92 K/mm3 (150-400); RDW Standard Deviation 73.7 fL (35.1-46.3); White Blood Cell Count 24.75 K/mm3 (4.00-11.30)
[2022-07-29 04:18] LABS: Albumin, Blood 3.2 g/dL (3.4-5.0); Anion Gap 11 mmol/L (6-16); Blood Urea Nitrogen 83 mg/dL (8-24); CO2, Blood 28 mmol/L (21-32); Calcium, Blood 8.8 mg/dL (8.5-10.1); Chloride, Blood 99 mmol/L (98-108); Creatinine, Blood 3.96 mg/dL (0.40-1.00); Glomerular Filtration Rate 13 (60-); Glucose, Blood 152 mg/dL (70-99); Phosphorus, Blood 6.5 mg/dL (2.5-4.9); Sodium, Blood 138 mmol/L (136-145)
--- NOTE | 2022-07-29 05:00 | NUR ---
WEAN PT CHANGED TO SPONTANIOUS ON VENT 7/5 PS. NOT ON SEDATION PRIOR. RESP RATE LESS THAN 20, SPO2 IN MID 90'S, TIDAL VOLUMES BETWEEN 400-500. PT FOLLOWING COMMANDS AND NOT COUGHING. REMAINS ON SPONTANIOUS AT THIS TIME.
--- NOTE | 2022-07-29 06:15 | NUR ---
SHIFT SUMMARY PT REMAINS INTUBATED W/ NO SEDATION. MOVES ALL EXTREMITIES SPONTANIOUSLY. FOLLOWS COMMANDS. NODS YES AND NO TO QUESTIONS. MEDICATED PER EMAR FOR PAIN. LEVO AT 1MCG/MIN TO KEEP MAP GREATER THAN 65. TF INFUSING. NO URINE OUTPUT THIS SHIFT. RECTAL TUBE IN PLACE, 300ML OUTPUT.
--- NOTE | 2022-07-29 07:34 | NUR ---
ASSUMED CARE: PT RESTING IN BED. INTUBATED WITH SETTINGS SPONTANEOUS 7/5, 35% FIO2. LEVOPHED AT 1MCG/KG. TF AT GOAL. BILATERAL WRIST RESTRAINTS, RECTAL TUBE PUTTING LIQUID YELLOW STOOL. NO ROE CATH DUE TO DIALYSIS PT. NO ACUTE NEEDS AT THIS TIME.
--- NOTE | 2022-07-29 10:36 | NUR ---
DIALYSIS AT BEDSIDE AT THIS TIME. DRS ROUNDED ON PT. DR WILLIAM REQUESTS TO EXTUBATE PT AFTER DIALYSIS IS COMPLETED WITH BIPAP AT BEDSIDE IN CASE PT NEEDS IT. DRS AWARE THAT WE ARE UNABLE TO DECREASE LEVOPHED BEYOND 1MCG/KG. DIALYSIS NURSE AT BEDSIDE AT THIS TIME.
[2022-07-29 13:12] LABS: Vancomycin, Random 12.4 ug/mL
--- NOTE | 2022-07-29 13:46 | NUR ---
PT EXTUBATED AT 1259. 3L O2 IN PLACE NOW SATTING AT 99%. AT BEDSIDE. [facility] CALLED TO TAKE PT TO FILTER TENDER [facility] FOR PERMACATH PLACEMENT. ASKED THEM TO WAIT A LITTLE WHILE WHILE PT STABALIZES FROM EXTUBATION. NO ACUTE NEEDS AT THIS TIME.
--- NOTE | 2022-07-29 14:42 | NUR ---
[facility]ART CENTER STAFF HERE TO COLLECT PT. STAFF STATED THAT THEY WOULD COLLECT COVID SWAB IN THE [facility]ART CENTER. AWARE AND STATES HE WILL BACK TO SEE PT TOMORROW
--- NOTE | 2022-07-29 16:21 | NUR ---
PT RETURNED FROM CATH CLAB WITH NEW SITE TO RIGHT CHEST. NO NEW BLEEDING OR SWELLING NOTED. OLD SITE REMOVED TO RIGHT NECK. PT UP TO CHAIR WITH LIFT. ASKING FOR WATER. NO FURTHER NEEDS AT THIS TIME.
--- NOTE | 2022-07-29 18:30 | NUR ---
SHIFT SUMMARY: PT REMAINS UP IN CHAIR AT THIS TIME. STATES SHE IS MORE COMFORTABLE IN CHAIR. HAS BEEN ON 3L SATTING IN MID 90S WITH THIS. PERMACATH OLD SITE WITH SOME OOZING BUT NO ACTIVE BLEEDING. LEVOPHED REMAINS AT 1MCG/KG. NO ACUTE NEEDS AT THIS TIME.
--- NOTE | 2022-07-29 19:00 | NUR ---
ASSUMED CARE OF PT, BEDSIDE REPORT RECEVIED. PT IS RESTING QUIETLY NOTED IN CHAIR AT BEDSIDE WITH OXYGEN VIA NASAL CANNULA AT 1 L/MIN, SATS MAINTAINING. PT IS CONVERSATIONAL, DENIES NEEDS AT THIS TIME, DOES AGREE TO RETURN TO BED WITH ASSISTANCE AT THIS TIME, OFFGOING RN AND STUDENT NURSE TO RETURN PT TO BED VIA OVERHEAD LIFT IN ROOM. LEVOPHED IS NOTED INFUSING AT 1 MCG/MIN AT THIS TIME, NS AT TKO. PRESSURES NOTED, WILL ATTEMPT TO TITRATE LEVOPHED TO OFF TOLERATED. PT DOES REPORT GENERALIZED PAIN, WILL REASSESS AFTER PT IS BACK TO BED, PAIN MEDS PER ORDERS PRN. WILL FURTHER ASSESS WITH 2000 ASSESSMENT.
[2022-07-30 04:22] LABS: BASOPHILS ABSOLUTE AUTO 0.03 K/mm3 (0.00-0.23); BASOPHILS PERCENT AUTO 0 % (0-2); EOSINOPHILS ABSOLUTE AUTO 0.01 K/mm3 (0.00-0.68); EOSINOPHILS PERCENT AUTO 0 % (0-6); Hematocrit 22.7 % (33.0-51.0); Hemoglobin 7.6 g/dL (11.5-16.0); IMMATURE GRAN PERCENT AUTO 2 % (0-1); LYMPHOCYTES PERCENT AUTO 12 % (21-46); MONOCYTES PERCENT AUTO 8 % (4-13); Mean Corpuscular HGB 36.4 pg (26.0-34.0); Mean Corpuscular HGB Conc 33.5 g/dL (31.5-36.5); Mean Corpuscular Volume 109 fL (80-100); NEUTROPHILS ABSOLUTE AUTO 17.42 K/mm3 (1.96-9.15); NEUTROPHILS PERCENT AUTO 78 % (41-73); NRBC ABSOLUTE 0.04 K/mm3 (0.00-0.02); NRBC Auto 0.2 /100 WBC (0.0-0.2); Platelet Count 89 K/mm3 (150-400); RDW Coefficient Variation 19.5 % (11.7-14.2); RDW Standard Deviation 76.3 fL (35.1-46.3); Red Blood Cell Count 2.09 M/mm3 (3.80-5.20); White Blood Cell Count 22.26 K/mm3 (4.00-11.30)
[2022-07-30 04:34] LABS: Bun/Creatinine Ratio 19.8 (12.0-20.0); Calcium, Blood 9.1 mg/dL (8.5-10.1); Creatinine, Blood 3.18 mg/dL (0.40-1.00); Magnesium, Blood 2.3 mg/dL (1.6-2.4); Phosphorus, Blood 5.6 mg/dL (2.5-4.9); Potassium, Blood 4.1 mmol/L (3.5-5.5)
--- NOTE | 2022-07-30 05:09 | NUR ---
PT AWAKE THROUGHOUT NOC. C/O WANTING TO SEE HER , PLACED CALL TO HIM AT 0400 THIS AM AND SHE EXPRESSED FEELINGS OF HURT THAT HE DID NOT RECOGNIZE HER VOICE ON THE PHONE. DISCUSSED PROBABLE VOCAL CHANGES BEING DUE TO RECENT INTUBATION, UNDERSTANDING VERBALIZED. SHE HAS COMPLAINED OF HUNGER THROUGHOUT NOC BUT VERBALIZES UNDERSTANDING WHEN RISK OF ASPIRATION IS EXPLAINED WELL PENDING EVALUATION BY SPEECH THERAPY. SATS MAINTAIN THROUGHOUT NOC WITH OXYGEN VIA NASAL CANNULA, INITIAL RATE WAS NEAR 4 L/MIN AND HAS BEEN TITRATED DOWN TO 3 L/MIN. SATS DO DECREASE TO LOW TO MID 80S WHEN SHE REMOVES OXYGEN HOWEVER QUICKLY RETURN TO MID 90S WHEN CANNULA IS PLACED BACK TO NARES. CONTINUES IN SINUS RHYTHM, LEVOPHED WAS TITRATED TO OFF AND PRESSURES HAVE MAINTAINED MAP GREATER THAN 60, SYSTOLIC DOES CONTINUE TO BE SOFT. HAS TOLERATED TURNS WELL EVERY 2 HOURS AND IS LOOKING FORWARD TO GETTING BACK UP TO CHAIR THIS AM. PLAN IS TO GET BACK TO CHAIR AT 0600 THIS AM.
--- NOTE | 2022-07-30 09:13 | NUR ---
ASSUMED CARE BEDSIDE REPORT FROM XENA RN AT 0700. PT RESTING IN RECLINER. A&OX 2. FORGETS YEAR. ANSWERS MOST QUESTIONS APPROPRIATELY. FOLLOWS COMMANDS. ALBRIGHT, TREMORS TO BLE. ABLE TO MAKE NEEDS KNOWN, USES CALL LIGHT APPROPRIATELY. LUNGS CLEAR, DIM IN BASES. 3L O2 VIA NC. OCCASIONAL COUGH, NON PRODUCTIVE. SR MONITOR, RATE 70'S. BP STABLE. ABD ROUND, SOFT, NON TENDER. BT X 4. RECTAL TUBE IN PLACE, LIQUID BROWN STOOL OUT. DIET ADVANCED TO PUREE c NECTAR THICK PER SPEECH. PERMA CATH TO RIGHT CHEST WALL, DRESSING C/D/I. PICC TO RUE. 2+ EDEMA TO EXT. PLAN TO WORK c OT/PT THIS SHIFT. STATUS CHANGED TO PCU. WILL CONTINUE TO MONITOR.
--- NOTE | 2022-07-30 10:22 | NUR ---
Spiritual Care Visit. Pt. is sitting up in a chair. Spouse is present. Spouse introduced this roving sizer to the Pt. and the Pt. welcomed my visit. Pt. displayed evidence of slow speech, but is pleasant and verbalized a request for prayer. Discussed the likelihood of Pt. being moved to a different room and normalized the Pt. experience. Prayed with Pt. Pt. and spouse verbalized gratitude for the spiritual care visit.
--- NOTE | 2022-07-30 15:01 | NUR ---
SHIFT SUMMARY/TRANSFER TO PCU 18 NO ACUTE CHANGES THIS SHIFT. REMAINS ON 3L VIA NC. LUNGS CLEAR, DIM IN BASES. NON PRODUCTIVE COUGH. BP STABLE, NSR, RATE 70'S. DIET ADVANCED, PUREE, ATE SMALL AMOUNTS. RECTAL TUBE REMOVED D/T NO MEASUREABLE OUTPUT X 2 SHIFTS. WORKED c PT/OT. ABLE TO SIT AT EDGE OF RECLINER c ASSISTANCE OF WALKER. BED BATH COMPLETE. TRANSFER TO PCU, REPORT TO IAN HILLS. ALL BELONGINGS SENT c PT.
--- NOTE | 2022-07-30 17:23 | NUR ---
Transfer note Received report from marla Myers. Pt to room at approx 1455. Pt oriented to room and call light. Pt alert, oriented to person, place, and time (knows year and month), pt calm and cooperative with care. Pt on 3l o2 via nc, spo2 at 90%, desaturates to 88-89% with activity. Tele sinus, bp stable. Pt denies pain, chest pain/pressure, sob, nausea, dizziness and numb/tingling. Other vss. No other acute changes noted. Will continue to monitor until report given to oncoming rn.
--- NOTE | 2022-07-31 01:27 | NUR ---
CALL TO RESIDENT DR DYER THIS RN CALLS TO DR MANISHA HILTON TO ORDER DOSE OF MIDODRINE NOW AFTER BEING UPDATED ON PT HYPOTENSION AT THIS TIME. STAT H&H FOR NOW AND BNP TO BE ADDED ON WITH ROUTINE LABS THIS AM. PT IS ALERT IN BED AT THIS TIME, NO COMPLAINTS.
[2022-07-31 02:12] LABS: Hematocrit 21.8 % (33.0-51.0); Hemoglobin 7.4 g/dL (11.5-16.0)
[2022-07-31 05:07] LABS: BASOPHILS ABSOLUTE AUTO 0.03 K/mm3 (0.00-0.23); BASOPHILS PERCENT AUTO 0 % (0-2); EOSINOPHILS ABSOLUTE AUTO 0.01 K/mm3 (0.00-0.68); EOSINOPHILS PERCENT AUTO 0 % (0-6); Hematocrit 22.4 % (33.0-51.0); Hemoglobin 7.4 g/dL (11.5-16.0); IMMATURE GRAN ABSOLUTE AUTO 0.34 K/mm3 (0.00-0.10); IMMATURE GRAN PERCENT AUTO 2 % (0-1); LYMPHOCYTES ABSOLUTE AUTO 1.91 K/mm3 (0.84-5.20); LYMPHOCYTES PERCENT AUTO 9 % (21-46); MONOCYTES PERCENT AUTO 7 % (4-13); Mean Corpuscular HGB 36.1 pg (26.0-34.0); Mean Corpuscular Volume 109 fL (80-100); Mean Platelet Volume 11.4 fL (9.1-12.4); NEUTROPHILS ABSOLUTE AUTO 18.77 K/mm3 (1.96-9.15); NEUTROPHILS PERCENT AUTO 83 % (41-73); NRBC ABSOLUTE 0.03 K/mm3 (0.00-0.02); NRBC Auto 0.1 /100 WBC (0.0-0.2); Platelet Count 84 K/mm3 (150-400); RDW Coefficient Variation 19.7 % (11.7-14.2); RDW Standard Deviation 73.4 fL (35.1-46.3); Red Blood Cell Count 2.05 M/mm3 (3.80-5.20); White Blood Cell Count 22.56 K/mm3 (4.00-11.30)
[2022-07-31 05:28] LABS: Albumin, Blood 3.3 g/dL (3.4-5.0); Bun/Creatinine Ratio 19.4 (12.0-20.0); Creatinine, Blood 4.27 mg/dL (0.40-1.00); Globulin, Blood 3.3 g/dL (2.2-4.0); Magnesium, Blood 2.5 mg/dL (1.6-2.4); Phosphorus, Blood 7.2 mg/dL (2.5-4.9); Potassium, Blood 4.7 mmol/L (3.5-5.5); Total Protein, Blood 6.6 g/dL (6.4-8.2)
--- NOTE | 2022-07-31 06:45 | NUR ---
TRANSFER NOTE PT TRANSFERRED TO ICU, PT BP CONTINUED TO TREND DOWN AFTER X2 DOSES OF 5 MG PO MIDODRINE AND 500 ML BOLUS OF NS. PT CONTINUED TO BE ALERT DESPITE HYPOTENSION, CONFUSION SEEMS TO HAVE WORSENED IN THE SECOND HALF OF THE SHIFT. PT MORE DISORIENTED TO PLACE AND TIME. MAKES RANDOM STATEMENTS AT TIMES THAT ARE DISCONNECTED FROM SITUATION, PT FREQUENTLY THINKS THIS RN IS A FAMILY MEMBER. PT STATES PAIN IS BETTER THAN AT START OF SHIFT. SR 80'S-90'S DENIES CP. BREATHING APPEARS UNLABORED, SOME TACHYPNEA BUT NO DYSPNEA NOTED BY THIS RN. O2 REQUIREMENTS INCREASED IN NIGHT. UP TO 6 L ON HIGH FLOW CANNULA TO MAINTAIN SATS ABOVE 89-90%. NO URINE OUTPUT THROUGHOUT NIGHT NOTED IN BRIEF. SOME LIQUID YELLOW STOOL THROUGHOUT SHIFT.
--- NOTE | 2022-07-31 06:48 | NUR ---
Pt transferred from PCU at approximately 0620. Bedside report received from DIAL MAKER. Levophed started for low BP, titrated up to 6 mcg/min ATT. Pt alert, oriented to self. PT on 02 via NC at 7 L/min. PICC in CORBIN, WNL. R/SC trialysis cath in place. BP improving with Levophed infusion, VS otherwise stable. Will continue to monitor and report off to dayshift RN.
--- NOTE | 2022-07-31 08:00 | NUR ---
ASSUMED CARE BEDSIDE REPORT FROM TESSA HILLS AT 0700. PT RESTING IN BED. DENIES NEEDS OR COMPLAINTS. A&OX 3. OCCASIONAL CONFUSED CONVERSATION BUT REORIENTS EASILY. LUNGS CLEAR, DIM IN BASES. 6L VIA HFNC, TITRATING DOWN. LEVO GTT INFUSING FOR MAP>60, TITRATING DOWN. SR, RATE 80'S. ANASCARIA, SIGNIFICANT IN ABD, 2+ IN EXT. BT X 4. ANURIC. PICC TO RUE, PERMA CATH TO RIGHT CHEST WALL. PLAN FOR DIALYSIS THIS SHIFT, WORK c PT/OT. WILL CONTINUE TO MONITOR.
--- NOTE | 2022-07-31 09:54 | NUR ---
Spiritual Care Visit. Spouse interested in access to AA materials for he an Pt.
--- NOTE | 2022-07-31 15:07 | NUR ---
Spiritual Care Visit. Pt. is awake and sitting up in a chair getting breathing treatments from RT. Spouse is present. Spouse had requested materials to assist the couple in alchohol recovery. Materials from the manager financial planning's office were delevered. Spouse verbalized gratitude for the spiritual care visit, and for the materials and information provided.
--- NOTE | 2022-07-31 17:23 | NUR ---
SHIFT SUMMARY LEVO TITRATED OFF THIS SHIFT. MAP >60, MIDODRINE GIVEN ORDERED. DIALYSIS THIS SHIFT. 3L OFF. PT UP TO CHAIR MOST OF SHIFT. WORKED c PT/TO. TOLERATED WELL. REFUSED ALL MEALS, DIETARY CONSULT ORDERED. PICC TO RUE, DRESSING CHANGED. 4 CM OUT. PERMA CATH TO RIGHT CHEST WALL. WILL CONTINUE TO MONITOR UNTIL REPORT TO ONCOMING NURSE.
--- NOTE | 2022-07-31 19:58 | NUR ---
ASSUMED CARE. AOX3 UP IN CHAIR. DOES NOT WANT TO GO BACK TO BED AT THIS TIME. EMOTIONAL AND TEARFUL AT TIMES. MISSES FAMILY. LS DIM IN BASES, REPLACED OXIMIZER WITH NC AT 2 LITERS, SATS 94%. SINUS WITH RATE OF 70'S. BP SOFT IN THE 90'S MAP >60. ABD SOFT DISTENDED, SMALL BM TODAY. JAUDICE EYES, BRUISING TO THE RIGHT SIDE OF NECK DOWN INTO SHOULDER AREA. SKIN SUKHDEEP COLOR, EDEMA IN BLE, ABD, AND BUE. USES CALL LIGHT APPROPRIATLY. MILD PAIN IN BACK.
[2022-08-01 05:04] LABS: BASOPHILS ABSOLUTE AUTO 0.02 K/mm3 (0.00-0.23); BASOPHILS PERCENT AUTO 0 % (0-2); EOSINOPHILS ABSOLUTE AUTO 0.04 K/mm3 (0.00-0.68); EOSINOPHILS PERCENT AUTO 0 % (0-6); Hematocrit 22.8 % (33.0-51.0); Hemoglobin 7.7 g/dL (11.5-16.0); IMMATURE GRAN ABSOLUTE AUTO 0.25 K/mm3 (0.00-0.10); IMMATURE GRAN PERCENT AUTO 1 % (0-1); LYMPHOCYTES ABSOLUTE AUTO 1.99 K/mm3 (0.84-5.20); LYMPHOCYTES PERCENT AUTO 8 % (21-46); MONOCYTES ABSOLUTE AUTO 1.82 K/mm3 (0.16-1.47); MONOCYTES PERCENT AUTO 7 % (4-13); Mean Corpuscular HGB Conc 33.8 g/dL (31.5-36.5); Mean Corpuscular Volume 110 fL (80-100); Mean Platelet Volume 11.6 fL (9.1-12.4); NEUTROPHILS ABSOLUTE AUTO 20.41 K/mm3 (1.96-9.15); NEUTROPHILS PERCENT AUTO 83 % (41-73); NRBC ABSOLUTE 0.03 K/mm3 (0.00-0.02); NRBC Auto 0.1 /100 WBC (0.0-0.2); Platelet Count 86 K/mm3 (150-400); RDW Coefficient Variation 20.6 % (11.7-14.2); RDW Standard Deviation 75.1 fL (35.1-46.3); Red Blood Cell Count 2.08 M/mm3 (3.80-5.20); White Blood Cell Count 24.53 K/mm3 (4.00-11.30)
[2022-08-01 05:24] LABS: Albumin, Blood 3.4 g/dL (3.4-5.0); Bilirubin, Total 5.8 mg/dL (0.1-1.0); Bun/Creatinine Ratio 17.4 (12.0-20.0); Creatinine, Blood 3.44 mg/dL (0.40-1.00); Globulin, Blood 3.4 g/dL (2.2-4.0); Magnesium, Blood 2.3 mg/dL (1.6-2.4); Phosphorus, Blood 5.7 mg/dL (2.5-4.9); Potassium, Blood 4.3 mmol/L (3.5-5.5); Total Protein, Blood 6.8 g/dL (6.4-8.2)
--- NOTE | 2022-08-01 06:40 | NUR ---
SHIFT SUMMARY: AOX3, EMOTIONAL AND TEARFUL AT TIMES. LS CONTINUE TO BE DIMINISHED, COUGH ONLY NOTED WITH SWALLOWING AT TIMES. EDUCATED ON CHIN TUCK WITH INTAKE. O2 HAS BEEN 2L NC T/O NIGHT, SHE DID HAVE AN EPISODE OF COUGHING AFTER SOME JELLO THIS AM CAUSING HER TO DESAT DOWN TO 80. AFTER SOME COUGHING SHE WAS ABLE TO CLEAR BUT O2 STILL NEEDED TO BE TURNED BACK UP TO 3L. BP CONTINUES TO BE SOFT BUT HAS MAINTAINED MAP OF >60. EDEMA PERSIST TO BLE, BUE, AND TRUNK AREA. WBC INCREASED TO 24.53. KIDNEY FUNCTIONS CONTINUE TO IMPROVE BUT STILL ARE SHOW NEED FOR DIALYSIS THIS AM. UP TO CHAIR THIS AM, ATTEMPTED TO STAND WITH WALKER AND 2 NURSE ASSIST AND WAS ONLY ABLE LIFT BOTTOM SLIGHTLY OFF CHAIR FOR A 2-3 SECONDS. CALL LIGHT IN REACH.
--- NOTE | 2022-08-01 08:32 | NUR ---
ASSUMPTION OF CARE UPON WALKING INTO ROOM, PT IS SITTING IN RECLINER ALERT AND ORIENTED X4. VITAL SIGNS ARE STABLE WITH NO SIGNS OF RESPIRATORY DISTRESS. PT COMPLAINS OF PAIN IN BOTH FEET BECAUSE OF EDEMA BUT DOES NOT WANT PRN PAIN MEDICATION AT THIS TIME. PLAN TO CONTINUE TO ENCOURAGE PT AND OT. WILL CONTINUE TO MONITOR.
--- NOTE | 2022-08-01 12:53 | NUR ---
Spiritual Care visit. Pt. is awake in bed and welcomes my visit. spouse is present. Pt. displays evidence of being engaged and aware, but her speeh seems to be slow. No distress is observed, and seek to normalize the patient experence. Raport is re-established. Pt. and spouse verbalize gratitude fo rthe spiritual care visit.
--- NOTE | 2022-08-01 14:02 | NUR ---
TRANSFER UPDATE REPORT RECIEVED FROM TRAILER TECHNICIAN AT 1354.
--- NOTE | 2022-08-01 14:43 | NUR ---
Transfer to PCU: Status change to PCU early afternoon, VS remain stable throughout shift. New bed assignment received for PCU rm 1. Report called to Saurav HILLS. Patient transferred via recliner chair to PCU rm 1 without difficulty. All belongings sent with patien to new room.
--- NOTE | 2022-08-01 17:55 | NUR ---
SHIFT SUMMARY PT ALERT, ORIENTED TO SELF, FAMILY, AND STAFF. PT MENTATIONS SEEMS TO HAVE IMPROVED SINCE ARRIVAL TO UNIT. PT WAS AT BEDSIDE AND PT WAS MORE COOPERATIVE AND TALKATIVE WITH PRESENT. VSS SINCE ARRIVAL TO UNIT WITH O2 SATS IN THE 90'S ON 3L HFNC. NO REPORT OF CHEST PAIN/PRESSURE SINCE ARRIVAL TO UNIT. NO REPORT OF SOB/DYSPNE SINCE ARRIVAL TO UNIT.
--- NOTE | 2022-08-01 21:20 | NUR ---
ASSUMPTION OF CARE/ PATIENT UPDATE THIS RN ASSUMED CARE OF PATIENT AT 1900. REPORT TAKEN FROM JASPER RN. VITALS TAKEN BY THIS RN AT 1900. PATIENT'S BP LOW WITH MAP RANGING FROM 60-65 DURING CONTINUOUS CHECKS WHEN THIS RN WAS AT BEDSIDE. OTHER VITALS STABLE. PATIENT ALERT AND ORIENTED ONLY TO SELF. CALL PLACED TO MD DYER DUE TO LOW MAP. ORDER FOR OT 5MG DOSE OF MIDODRINE; ADMINISTERED PER EMAR BY THIS RN. BP RECHECKED AFTER 15-20 MINUTES, SBP OF 103, WITH MAP OF 88. MAP CONTINUES TO BE >70 AT TIME OF THIS NOTE. BP AUTO CYCLING EVERY 15 MINUTES. NO FURTHER ORDERS OR CHANGES AT THIS TIME.
--- NOTE | 2022-08-02 00:17 | NUR ---
PATIENT UPDATE CALL PLACED TO MD DYER AT 2240 DUE TO MAP OF 59. MD DYER WITH ORDERS FOR OT 10MG DOSE OF MIDODRINE. PATIENT MEDICATED PER ORDER; TOLERATING WELL; WITH MAP INCREASING TO 68. SCHEDULED MIDODRINE GIVEN PER EMAR AT 0000. NO FURTHER ORDERS AT THIS TIME. BP AUTO CYCLING Q30 MINUTES. FREQUENT CHECKS BY THIS RN. MEDICATED FOR PAIN PER EMAR. BED IN LOWEST POSITION, HOB ELEVATED, SIDE RAILS UP, CALL LIGHT WITHIN REACH.
[2022-08-02 03:53] LABS: BASOPHILS ABSOLUTE AUTO 0.02 K/mm3 (0.00-0.23); BASOPHILS PERCENT AUTO 0 % (0-2); EOSINOPHILS ABSOLUTE AUTO 0.01 K/mm3 (0.00-0.68); EOSINOPHILS PERCENT AUTO 0 % (0-6); Hematocrit 22.8 % (33.0-51.0); Hemoglobin 7.5 g/dL (11.5-16.0); IMMATURE GRAN ABSOLUTE AUTO 0.17 K/mm3 (0.00-0.10); IMMATURE GRAN PERCENT AUTO 1 % (0-1); LYMPHOCYTES ABSOLUTE AUTO 1.13 K/mm3 (0.84-5.20); LYMPHOCYTES PERCENT AUTO 6 % (21-46); MONOCYTES ABSOLUTE AUTO 1.46 K/mm3 (0.16-1.47); MONOCYTES PERCENT AUTO 7 % (4-13); Mean Corpuscular HGB 36.4 pg (26.0-34.0); Mean Corpuscular HGB Conc 32.9 g/dL (31.5-36.5); Mean Corpuscular Volume 111 fL (80-100); Mean Platelet Volume 11.6 fL (9.1-12.4); NEUTROPHILS ABSOLUTE AUTO 17.33 K/mm3 (1.96-9.15); NEUTROPHILS PERCENT AUTO 86 % (41-73); Platelet Count 80 K/mm3 (150-400); RDW Coefficient Variation 21.1 % (11.7-14.2); RDW Standard Deviation 81.2 fL (35.1-46.3); Red Blood Cell Count 2.06 M/mm3 (3.80-5.20); White Blood Cell Count 20.12 K/mm3 (4.00-11.30)
[2022-08-02 04:11] LABS: Albumin, Blood 3.3 g/dL (3.4-5.0); Albumin/Globulin Ratio 0.9 (0.8-1.8); Calcium, Blood 8.7 mg/dL (8.5-10.1); Creatinine, Blood 4.54 mg/dL (0.40-1.00); Globulin, Blood 3.5 g/dL (2.2-4.0); Magnesium, Blood 2.6 mg/dL (1.6-2.4); Phosphorus, Blood 7.2 mg/dL (2.5-4.9); Potassium, Blood 4.7 mmol/L (3.5-5.5); Total Protein, Blood 6.8 g/dL (6.4-8.2)
--- NOTE | 2022-08-02 04:11 | NUR ---
SHIFT SUMMARY PATIENT ORIENTED TO SELF/FAMILY DURING THIS SHIFT. PATIENT APPEARS TO BE HAVING AUDITORY HALLUCINATIONS AND STATES SEEING A DOG IN ROOM ALONG WITH OTHER PEOPLE. PATIENT BECOMES AGGITATED AT TIMES WITH CARE BUT IS OTHERWISE COOPERATIVE. PATIENT STATES TO THIS RN THAT SHE IS COMFORTABLE AND DOES NOT WANT TO BE TURNED OR REPOSITIONED BUT CONTINUES TO MOAN/GROAN IN SLEEP. PATIENT APPEARS RESTLESS TO THIS RN AND OFTEN GRABS AT CLOTHES/TELE/BEDDING; REPORTS FROM PREVIOUS RN'S STATING THAT THIS HAS BEEN HER BASELINE. PATIENT HAS MADE NO URINE DURING THIS SHIFT BUT HAD A SMALL SOFT BM IN THE BEGINNING OF THE SHIFT. PATIENT IS A DIALYSIS PATIENT. MAP CONTINUES TO BE >65 SINCE LAST NOTE ABOUT LOW MAP'S; SEE PREVIOUS NOTES. ON 3L HFNC WITH O2 SATS >92%. HOB ELEVATED DUE TO PATIENT DESATTING WITH HEAD FLAT. PICC IN CORBIN WNL; DRAWS/FLUSHES WELL, CAPS CHANGED. PATIENT REFUSED SEVERAL OFFERS FOR REPOSITIONING; REPORT OF CURSING AT [employer]NAGER DURING THIS SHIFT. BED IN LOWEST POSITION, SIDE RAILS UP, CALL LIGHT WITHIN REACH. WILL CONTINUE TO MONITOR UNTIL SHIFT CHANGE AT 0700.
--- NOTE | 2022-08-02 07:56 | NUR ---
WILFREDO HAS BEEN CRYING OUT IN PAIN, SHE SAYS HER BELLY IS UPSET AND CRAMPING ZOFRAN IV GIVEN PER MAR, SHE IS RESTLESS AND UNABLE TO REORIENT. SHE IS CRYING OUT FOR HER MAMMA.
--- NOTE | 2022-08-02 09:48 | NUR ---
WILFREDO IS CONTINUING TO MOAN AND COMPLAIN OF STOMACH PAIN/CRAMPING. SHE IS CURRENTLY IN DIALYSIS, CALL TO , NO NEW ORDERS AT THIS TIME. WILL CONTINUE TO MONITOR AND REPORT ANY CHANGES.
--- NOTE | 2022-08-02 13:47 | NUR ---
WILFREDO RETURNS FROM DIALYSIS, TAKES HER MIDODRINE (NEW DOSAGE), SHE IS DISORIENTED AND TALKING ABOUT RIVER SHOES AND TELLING STORIES. HER IS CONCERNED, REASSURANCE GIVEN AND EDUCATION PROVIDED. SHE IS COOPERATIVE AND IS BEING PLEASANT. NO LONGER MOANING ABOUT HER ABDOMEN. FEET REMAIN EDEMATOUS, PULSES FELT FAINTLY. DENIED ANY PO INTAKE AT THIS TIME.
--- NOTE | 2022-08-02 14:45 | NUR ---
WILFREDO WAS HOLLERING ABOUT HER STOMACH, SHE WAS TURNED AND CLEANED OF STICKY BROWN POOP. SHE TOLERATED THE TRANSFERRING WELL, ENCOURAGED HER TO ASSIST WITH THE TURNING, SHE KEPT SAYING SHE WANTS TO JUST GET UP AND TAKE A SHOWER. SHE WAS TOLD THAT IF SHE COULD GET HER LEGS STRONGER THAT WOULD BE A GREAT OPTION. ORAL CARE DONE, WITH MUCH RESISTANCE FROM HER. SHE HAS ONLY TAKEN IN HER APPLE SAUCE WITH MEDS AND A COUPLE OF DRINKS OF WATER. AT THE BEDSIDE. [facility] IS CLEAN AND INTACT.
--- NOTE | 2022-08-02 17:10 | NUR ---
WILFREDO WAS DONE SITTING IN THE CHAIR AND WANTED BACK TO BED. SHE WAS LIFTED USING THE CEILING LIFT. UPON GETTING HER SETTLED BACK IN THE BED IT WAS NOTED THAT THERE WAS A POOL OF ABEL BLOOD UNDER HER RIGHT THIGH. UPON FURTHER IN- VESTIGATION IT WAS ALL OVER HER FRONTAL PERINEUM, IF IT WERE MENSTRAL BLOOD ALTHOUGH SHE IS "POSTMENOPAUSAL" PER HER . UPON CLEANING HER UP WITH 2 ADDITIONAL RN'S, IT WAS NOTED THAT IT WAS NOT RECTAL SHE WAS HAVING BROWN LOOSE STOOL. SHE IS NO LONGER COMPLAINING OF ABDOMINAL PAIN. SHE IS CURRENTLY RESTING.
--- NOTE | 2022-08-02 18:25 | NUR ---
WILFREDO HAS BEEN AWAKE ON AND OFF THROUGHOUT THE DAY. SHE TOLERATED HER DIALYSIS WELL, GETTING UP IN THE CHAIR THIS AFTERNOON WITH CUSTOMER SERVICE TELLER. SHE HAS BEEN INCONTINENT OF STOOL X 2, BROWN SOFT. THE BLOODY DISCHARGE PREVIOUSLY NOTED. SHE WAS ABLE TO STATE THE PRESIDENT, RECOGNIZES HER , DOESN'T KNOW THE DATE OR TIME OR LOCATION. SHE CONTINUES TO COUGH, DENIES ANYTHING PRODUCTIVE, OXYGEN VIA NC @ 2L. PICC TO CORBIN.
[2022-08-03 03:54] LABS: BASOPHILS ABSOLUTE AUTO 0.02 K/mm3 (0.00-0.23); BASOPHILS PERCENT AUTO 0 % (0-2); EOSINOPHILS ABSOLUTE AUTO 0.02 K/mm3 (0.00-0.68); EOSINOPHILS PERCENT AUTO 0 % (0-6); Hematocrit 22.9 % (33.0-51.0); Hemoglobin 7.9 g/dL (11.5-16.0); IMMATURE GRAN ABSOLUTE AUTO 0.17 K/mm3 (0.00-0.10); IMMATURE GRAN PERCENT AUTO 1 % (0-1); LYMPHOCYTES PERCENT AUTO 6 % (21-46); MONOCYTES ABSOLUTE AUTO 1.58 K/mm3 (0.16-1.47); MONOCYTES PERCENT AUTO 8 % (4-13); Mean Corpuscular HGB Conc 34.5 g/dL (31.5-36.5); Mean Corpuscular Volume 110 fL (80-100); Mean Platelet Volume 11.5 fL (9.1-12.4); NEUTROPHILS PERCENT AUTO 84 % (41-73); NRBC ABSOLUTE 0.02 K/mm3 (0.00-0.02); NRBC Auto 0.1 /100 WBC (0.0-0.2); Platelet Count 85 K/mm3 (150-400); RDW Coefficient Variation 22.2 % (11.7-14.2); RDW Standard Deviation 85.6 fL (35.1-46.3); Red Blood Cell Count 2.08 M/mm3 (3.80-5.20); White Blood Cell Count 19.09 K/mm3 (4.00-11.30)
--- NOTE | 2022-08-03 04:11 | NUR ---
END OF SHIFT SUMMARY PT HAS BEEN SIGNIFICANLY ALTERED MENTALY SEEMS IS SHE IS HAVEING AUDITORY HALUCINATIONS SHE SEEMS TO BE TALKING TO SOMEONE AND MENTIONED THAT THER WERE "DOGS BARKING OUT THERE" SHE HAS ALSO BEEN MOANING LIKE SHE IS IN PAIN. WHEN DISCUSSING WHY THE PT IS MOANING SHE EITHER SAYS IM FINE AND MUMBLES SOME UNCOMPREHESIBLE WORDS UNDER HER BREATH. I DID UNCOVER AFTER REPEATED INQUIRE THAT THE BOTTOM OF HER FEET HURT SO I TOOK OFF SOCKS TO EXAMINE THEM. I STARTED TO GET MORE DISCRIPTION ABOUT THE PAIN. SHE BALD HER HANDS AND FIST I ASKED IF SHE WAS ANGRY SHE STATED MY QUESTIONS WERE ANNOYING. I STOPPED MASSAGING AND LEFT THE ROOM. PT LOOKS TERRIBLE AND UNCOMFORTABLE SHE IS NOT RECALLING ANY OF THE CONVERSATIONS WE HAVE HAD SHE WILL COMPLAIN OF BEING COLD PLACE A BLANKET AND 10 SEC LATER SHES PULLS OFF THEN COMPLAINS OF BEING COLD SHE HAD ANOTHER EPISODE OF VAGINAL BLEEDING AWHATING LAB WORK.BP HAS BEEN SOFT MAPS HAVE BEEN >65 WILL CONTINUE TO MONITOR AND REPORT OFF TO DAY RN
[2022-08-03 04:12] LABS: Magnesium, Blood 2.4 mg/dL (1.6-2.4)
[2022-08-03 04:13] LABS: Albumin, Blood 3.3 g/dL (3.4-5.0); Albumin/Globulin Ratio 0.9 (0.8-1.8); Bilirubin, Total 5.4 mg/dL (0.1-1.0); Bun/Creatinine Ratio 14.9 (12.0-20.0); Calcium, Blood 8.8 mg/dL (8.5-10.1); Creatinine, Blood 3.36 mg/dL (0.40-1.00); Globulin, Blood 3.7 g/dL (2.2-4.0); Phosphorus, Blood 5.3 mg/dL (2.5-4.9); Potassium, Blood 4.4 mmol/L (3.5-5.5)
--- NOTE | 2022-08-03 16:26 | NUR ---
SHIFT SUMMARY PT WAKES EASILY, A&O2-3 WITH OCC CONFUSION AND HALLUCINATIONS. VSS. AICHA PO, LOW PO INTAKE, FEEDER/NEEDS ENCOURAGEMENT, MEDS CRUSHED WITH APPLESAUCE. ANURIC, ATTENDS ON FOR SOFT BOWEL (X1), PAD IN PLACE FOR VAG SPOTTING (MINIMAL). LIFT TRANSFER TO CHAIR WITH FREQUENT REPOSITIONING, BLE ELEVATED ON PILLOWS, HOB ELEVATED 30 DEGREES. PICC CORBIN FLUSHES WELL. TELE SR 70S. WILL REPORT TO ONCOMING MYRNA RN.
--- NOTE | 2022-08-03 20:49 | NUR ---
PT HYPOTENSIVE WITH SBP IN 60-70S, PT LETHARGIC. PT UNABLE TO TAKE PO MEDS AT THIS TIME. CALLED DR. DYER TO BEDSIDE. ORDERS FOR LEVO AND TRANSFER TO ICU.
--- NOTE | 2022-08-03 21:02 | NUR ---
PT WAS TRANSFERED FROM PCU FOR HYPOTENSION PT PRESSURE WAS IN THE 60'S MAP OF 44 LEVO STARTED CURRENTLY AT 10 MAP IS 62 ARRIVED @2039 PT IS OBTUNDED OPENS EYES TO STERNAL RUB ONLY
[2022-08-03 22:44] LABS: pH Blood Venous 7.36 (7.34-7.37)
[2022-08-03 22:45] LABS: Base Excess Venous 2.9 mmol/L; Bicarbonate Venous 26.4 mmol/L (24.0-30.0); PCO2 Venous 50.6 mmHg (38-42)
[2022-08-03 22:49] LABS: Bilirubin, Urine Neg (Neg); Blood, Urine 5+ (Neg); Glucose Qualitative, Urine Neg (Neg); Ketones, Urine 1+ (Neg); Leukocyte Esterase, Urine Neg (Neg); Nitrite, Urine Neg (Neg); Protein, Urine 4+ (Neg); Source, Urine Straight Cath; Specific Gravity, Urine 1.015 (1.003-1.022); Urobilinogen, Urine NORM (Normal)
[2022-08-03 22:50] LABS: BASOPHILS ABSOLUTE AUTO 0.03 K/mm3 (0.00-0.23); BASOPHILS PERCENT AUTO 0 % (0-2); EOSINOPHILS ABSOLUTE AUTO 0.37 K/mm3 (0.00-0.68); EOSINOPHILS PERCENT AUTO 2 % (0-6); Hematocrit 26.3 % (33.0-51.0); Hemoglobin 8.9 g/dL (11.5-16.0); IMMATURE GRAN ABSOLUTE AUTO 0.39 K/mm3 (0.00-0.10); IMMATURE GRAN PERCENT AUTO 2 % (0-1); LYMPHOCYTES ABSOLUTE AUTO 2.76 K/mm3 (0.84-5.20); LYMPHOCYTES PERCENT AUTO 12 % (21-46); MONOCYTES ABSOLUTE AUTO 2.22 K/mm3 (0.16-1.47); MONOCYTES PERCENT AUTO 10 % (4-13); Mean Corpuscular HGB 38.2 pg (26.0-34.0); Mean Corpuscular HGB Conc 33.8 g/dL (31.5-36.5); Mean Corpuscular Volume 113 fL (80-100); Mean Platelet Volume 11.4 fL (9.1-12.4); NEUTROPHILS ABSOLUTE AUTO 17.67 K/mm3 (1.96-9.15); NEUTROPHILS PERCENT AUTO 75 % (41-73); NRBC ABSOLUTE 0.06 K/mm3 (0.00-0.02); NRBC Auto 0.3 /100 WBC (0.0-0.2); Platelet Count 117 K/mm3 (150-400); RDW Coefficient Variation 23.2 % (11.7-14.2); RDW Standard Deviation 93.4 fL (35.1-46.3); Red Blood Cell Count 2.33 M/mm3 (3.80-5.20); White Blood Cell Count 23.44 K/mm3 (4.00-11.30)
[2022-08-03 23:06] LABS: Amorphous Mod (0-Heavy); Appearance, Urine Turbid (Clear); Bacteria Mod /hpf; Color, Urine Brown (P-Yellow); Red Blood Cells, Urine TNTC /hpf (0-2); Squamous Epithelial Cells Not Seen /hpf (Few)
[2022-08-03 23:07] LABS: Albumin, Blood 3.6 g/dL (3.4-5.0); Albumin/Globulin Ratio 0.9 (0.8-1.8); Bilirubin, Total 5.4 mg/dL (0.1-1.0); Bun/Creatinine Ratio 14.3 (12.0-20.0); Calcium, Blood 9.6 mg/dL (8.5-10.1); Creatinine, Blood 4.21 mg/dL (0.40-1.00); Globulin, Blood 4.1 g/dL (2.2-4.0); Potassium, Blood 4.5 mmol/L (3.5-5.5); Total Protein, Blood 7.7 g/dL (6.4-8.2)
[2022-08-04 04:11] LABS: BASOPHILS ABSOLUTE AUTO 0.02 K/mm3 (0.00-0.23); BASOPHILS PERCENT AUTO 0 % (0-2); EOSINOPHILS ABSOLUTE AUTO 0.25 K/mm3 (0.00-0.68); EOSINOPHILS PERCENT AUTO 1 % (0-6); Hematocrit 24.8 % (33.0-51.0); IMMATURE GRAN ABSOLUTE AUTO 0.18 K/mm3 (0.00-0.10); IMMATURE GRAN PERCENT AUTO 1 % (0-1); LYMPHOCYTES ABSOLUTE AUTO 2.51 K/mm3 (0.84-5.20); LYMPHOCYTES PERCENT AUTO 14 % (21-46); MONOCYTES ABSOLUTE AUTO 1.74 K/mm3 (0.16-1.47); MONOCYTES PERCENT AUTO 9 % (4-13); Mean Corpuscular HGB 37.2 pg (26.0-34.0); Mean Corpuscular HGB Conc 32.3 g/dL (31.5-36.5); Mean Corpuscular Volume 115 fL (80-100); Mean Platelet Volume 11.7 fL (9.1-12.4); NEUTROPHILS ABSOLUTE AUTO 13.94 K/mm3 (1.96-9.15); NEUTROPHILS PERCENT AUTO 75 % (41-73); NRBC ABSOLUTE 0.05 K/mm3 (0.00-0.02); NRBC Auto 0.3 /100 WBC (0.0-0.2); Platelet Count 94 K/mm3 (150-400); RDW Coefficient Variation 22.8 % (11.7-14.2); RDW Standard Deviation 95.7 fL (35.1-46.3); Red Blood Cell Count 2.15 M/mm3 (3.80-5.20); White Blood Cell Count 18.64 K/mm3 (4.00-11.30)
[2022-08-04 04:26] LABS: Albumin, Blood 3.8 g/dL (3.4-5.0); Anion Gap 11 mmol/L (6-16); Blood Urea Nitrogen 63 mg/dL (8-24); Bun/Creatinine Ratio 14.4 (12.0-20.0); CO2, Blood 28 mmol/L (21-32); Calcium, Blood 9.3 mg/dL (8.5-10.1); Chloride, Blood 101 mmol/L (98-108); Creatinine, Blood 4.36 mg/dL (0.40-1.00); Glomerular Filtration Rate 12 (60-); Glucose, Blood 127 mg/dL (70-99); Magnesium, Blood 2.1 mg/dL (1.6-2.4); Phosphorus, Blood 6.3 mg/dL (2.5-4.9); Potassium, Blood 4.4 mmol/L (3.5-5.5); Sodium, Blood 140 mmol/L (136-145)
--- NOTE | 2022-08-04 06:23 | NUR ---
END OF SHIFT SUMMARY PT WAS TRANSFERED TO ICU BECAUSE OF HYPOTENSION. PT ARRIVED OBTUNTED AND NEED STERNAL RUB FOR HER TO OPEN HER EYES. SHE WAS STARTED ON LEVO AND WAS HIGH 18. VASO WAS ORDERED BUT AFTER GETTING ALBUMIN I DIDNT HAVE TO START AND WAS ABLE TO TIRATE LEVO TO 6 WHICH IS WHAT IT IS CURRENTLY RUNNING A ROE WAS PLACED AFTER SCANING BLADDER >650 MLS DARK BROWN URIN WAS RETURNED AND A UA WAS SENT. I NOTICED SOME SMALL CLOTS IN URIN I INFORMED ELIZABETH ALONG WITH THE DROP IN HH. PT HAS SINCE AND WOKE UP AND BACK TO HER HOSPITAL BASELINE WHICH IS CONFUSSED MOOD LABIL AND FLUCTUATES QUICKLY FROM GIGGLING TO CUSSING ME OUT. SHE IS DUE TO GET DIALISIS TODAY. SHE IS HAVING MENSIS EVENTHOUGH SHE IS POST MENAPOSIL. BECAUSE PT HAS BEEN TAKING BP CUFF OFF REPEATEDLY AND COULDNT GET CONSISTANT BP TO TITRATE LEVO THE CUFF IS NOW ON LOWER EXTREMIT. WILL CONTINUE TO MONITOR AND REPORT TO DAY RN
--- NOTE | 2022-08-04 07:30 | NUR ---
TOOK OVER CARE OF PT AT 0700. PT ON 6LNC, AND 6 OF LEVO GTT
[2022-08-04 12:21] LABS: Hematocrit 23.6 % (33.0-51.0)
[2022-08-04 19:08] LABS: Bicarbonate Venous 30.1 mmol/L (24.0-30.0); PCO2 Venous 45.7 mmHg (38-42); pH Blood Venous 7.44 (7.34-7.37)
[2022-08-04 19:25] LABS: Bun/Creatinine Ratio 12.4 (12.0-20.0); Calcium, Blood 9.3 mg/dL (8.5-10.1); Creatinine, Blood 2.91 mg/dL (0.40-1.00); Potassium, Blood 3.9 mmol/L (3.5-5.5)
[2022-08-05 03:36] LABS: BASOPHILS ABSOLUTE AUTO 0.01 K/mm3 (0.00-0.23); BASOPHILS PERCENT AUTO 0 % (0-2); EOSINOPHILS ABSOLUTE AUTO 0.26 K/mm3 (0.00-0.68); EOSINOPHILS PERCENT AUTO 2 % (0-6); Hematocrit 22.9 % (33.0-51.0); Hemoglobin 7.6 g/dL (11.5-16.0); IMMATURE GRAN ABSOLUTE AUTO 0.09 K/mm3 (0.00-0.10); IMMATURE GRAN PERCENT AUTO 1 % (0-1); LYMPHOCYTES ABSOLUTE AUTO 1.98 K/mm3 (0.84-5.20); LYMPHOCYTES PERCENT AUTO 14 % (21-46); MONOCYTES ABSOLUTE AUTO 1.16 K/mm3 (0.16-1.47); MONOCYTES PERCENT AUTO 8 % (4-13); Mean Corpuscular HGB 37.3 pg (26.0-34.0); Mean Corpuscular HGB Conc 33.2 g/dL (31.5-36.5); Mean Corpuscular Volume 112 fL (80-100); Mean Platelet Volume 10.8 fL (9.1-12.4); NEUTROPHILS ABSOLUTE AUTO 10.38 K/mm3 (1.96-9.15); NEUTROPHILS PERCENT AUTO 75 % (41-73); NRBC ABSOLUTE 0.02 K/mm3 (0.00-0.02); NRBC Auto 0.1 /100 WBC (0.0-0.2); Platelet Count 72 K/mm3 (150-400); RDW Coefficient Variation 22.9 % (11.7-14.2); RDW Standard Deviation 94.3 fL (35.1-46.3); Red Blood Cell Count 2.04 M/mm3 (3.80-5.20); White Blood Cell Count 13.88 K/mm3 (4.00-11.30)
[2022-08-05 03:49] LABS: Albumin, Blood 3.3 g/dL (3.4-5.0); Anion Gap 8 mmol/L (6-16); Blood Urea Nitrogen 39 mg/dL (8-24); CO2, Blood 31 mmol/L (21-32); Calcium, Blood 9.5 mg/dL (8.5-10.1); Chloride, Blood 98 mmol/L (98-108); Creatinine, Blood 3.26 mg/dL (0.40-1.00); Glomerular Filtration Rate 16 (60-); Glucose, Blood 120 mg/dL (70-99); Phosphorus, Blood 3.9 mg/dL (2.5-4.9); Potassium, Blood 3.9 mmol/L (3.5-5.5); Sodium, Blood 137 mmol/L (136-145)
--- NOTE | 2022-08-05 05:34 | NUR ---
END OF SHIFT SUMMARY PT WAS IN A CHAIR WHEN CAME ON TO SHIFT SHE WAS RESTRAINED AND CONTINUED TO BE AGITATED AND VERBALY AGRESSIVE TOWARDS MY SELF AND CO WORKERS. WHEN CAME IN TO ASSES PT IS SCREAMING ABOUT POOPING AND HAD SOME HOW GOTTEN RESTRAINS OFF AND PULLED NEWLY PLACED NG. GOT HER BACK INTO BED CLEANED HER UP AND REPLACED HER NG PLACED XRAY ORDER FOR VERIFICATION AND BY THE TIME THEY ARRIVED SHE HAD SOME HOW WIGGLED DOWN AND PULLED NG AGAIN WHILE IN RESTRAINTS. AT THAT POINT I ATTEMPTED TO GIVE MEDS IN APPLE SAUCE ORDERED AND PT WILLINGLY TOOK MEDS NO ISSUES. WAS REPORTED PT WAS SPITTING OUT MEDS AND THAT WAS WHY THE NG WAS ORDERED. THE RESIDENT WAS CALLED AND THE ORDERED WAS DC. THE PT CONTINUED TO BE VERBALY AGGRESSIVE AND YELLING OUT TO POINT OTHER PT ON UNIT WERE COMPLAING CALLED CHIEF SCIENTIFIC OFFICER AND AN ORDER FOR TRAZIDONE WAS ORDERED AND GIVEN. STILL IN AN AGITATED STATE CALLED ELIZABETH AND 5MG XYPREXA IM WAS ORDERED AND GIVEN. PT FINNALY SEEMED TO CALM AND APPEARED TO REST ALTHOUGH WAS AWAKE EVERY TIME I ROUNDED BUT PT HAS REMAINED CALM AND COOPERATIVE. I REMOVED RESTRAINTS AND ORDER D/C. SHE REMAINED ON LEVOPHED @4 HAVE BEEN UNABLE TO TITRATE OFF. WILL CONTIUE TO MONITOR AND REPORT OFF TO ONCOMING RN BE AGGITATED AND YELLING OUT SO I CALLED auto mechanic supervisor
--- NOTE | 2022-08-05 07:16 | NUR ---
ASSUMED CARE: PT RESTING QUIETLY IN BED. NSR IN 80S ON TELE. LEVOPHED GTT AT 4MCG/KG. NC IN PLACE AT THIS TIME. ROE CATH WITH MINIMAL OUTPUT, DARK TEA COLORED URINE. NO ACUTE NEEDS OR CONCERNS AT THIS TIME.
--- NOTE | 2022-08-05 08:27 | NUR ---
CONVERSED WITH DR KEBEDE REGARDING PT'S STATUS. DR AWARE PT IS ON 4MCG/KG OF LEVOPHED. DR STATED HE WILL DISCUSS FURTHER WITH RESIDENTS TO DETERMINE DOSE ADJUSTMENTS. ALSO REQUESTED THAT WE CONTACT THEM WHEN PT'S ARRIVES SO THEY CAN UPDATE HIM ON STATUS. NO ACUTE NEEDS AT THIS TIME.
--- NOTE | 2022-08-05 17:45 | NUR ---
SHIFT SUMMARY: PT REMAINS ON LEVOPHED AT 2MCG/KG. MIDODRINE INCREASED TO 15MG TID. ATTEMPTED TO TITRATE OFF LEVOPHED BUT PT ONLY TOLERATED FOR 2 HOURS. REMAINS ON 4L O2 VIA NC. DESATURATES INTO THE MID 80S WITHOUT O2. UP IN CHAIR X2 THIS SHIFT WITH CEILING LIFT. FAMILY AT BEDSIDE AT THIS TIME.
--- NOTE | 2022-08-05 19:15 | NUR ---
ASSUMED CARE OF PT, BEDSIDE REPORT RECEIVED. PT IS RESTING QUIETLY IN RECLINER CHAIR AT BEDSIDE. C/O PAIN AND OFFGOING RN IS CURRENTLY MEDICATING WITH FENTANYL, WILL REASSESS. PT DENIES OTHER NEEDS AT THIS TIME. LEVOPHED NOTED INFUSING AT 2 MCG/MIN, MAP MAINTAINING AT THIS TIME, WILL MONITOR AND TITRATE TOLERATED. VITAL SIGNS REVIEWED WITH OFFGOING RN.
--- NOTE | 2022-08-05 22:45 | NUR ---
SATS DECREASED PT NOTED TO HAVE SATS DECREASED TO LOW TO MID 80S ON MONITOR. ON ARRIVAL TO ROOM PT CONTINUES SLEEPING SNORING NOTED, CLEARS WITH JAW THRUST, PT GRIMACES WITH JAW THRUST, SHAKES HEAD AND PULLS AWAY. PT DOES COUGH AND SPUTUM IS APPARENT AT LIPS, PT IS NOT NOTED TO SWALLOW AT THIS TIME BUT DOES BRING SPUTUM BACK INTO MOUTH, ORAL SUCTIONING IS PROVIDED, SATS IMPROVE TO HIGH 80S, LUNG SOUNDS REMAIN UNCHANGED AT THIS TIME, OXYGEN HAS BEEN TITRATED DOWN TO 2.5 L/MIN SINCE BEGINNING OF SHIFT, RETURNED TO 4 L/MIN AT THIS TIME AND SATS RETURN TO MID TO UPPER 90S WILL CONT TO MONITOR.
[2022-08-06 03:55] LABS: BASOPHILS ABSOLUTE AUTO 0.01 K/mm3 (0.00-0.23); BASOPHILS PERCENT AUTO 0 % (0-2); EOSINOPHILS ABSOLUTE AUTO 0.38 K/mm3 (0.00-0.68); EOSINOPHILS PERCENT AUTO 3 % (0-6); Hematocrit 24.4 % (33.0-51.0); Hemoglobin 7.8 g/dL (11.5-16.0); IMMATURE GRAN ABSOLUTE AUTO 0.08 K/mm3 (0.00-0.10); IMMATURE GRAN PERCENT AUTO 1 % (0-1); LYMPHOCYTES ABSOLUTE AUTO 2.25 K/mm3 (0.84-5.20); LYMPHOCYTES PERCENT AUTO 15 % (21-46); MONOCYTES ABSOLUTE AUTO 1.17 K/mm3 (0.16-1.47); MONOCYTES PERCENT AUTO 8 % (4-13); Mean Corpuscular HGB 36.6 pg (26.0-34.0); Mean Corpuscular Volume 115 fL (80-100); Mean Platelet Volume 11.3 fL (9.1-12.4); NEUTROPHILS ABSOLUTE AUTO 10.76 K/mm3 (1.96-9.15); NEUTROPHILS PERCENT AUTO 73 % (41-73); Platelet Count 75 K/mm3 (150-400); RDW Coefficient Variation 23.3 % (11.7-14.2); RDW Standard Deviation 95.7 fL (35.1-46.3); Red Blood Cell Count 2.13 M/mm3 (3.80-5.20); White Blood Cell Count 14.65 K/mm3 (4.00-11.30)
[2022-08-06 04:12] LABS: Albumin, Blood 3.2 g/dL (3.4-5.0); Albumin/Globulin Ratio 0.9 (0.8-1.8); Bilirubin, Total 5.1 mg/dL (0.1-1.0); Bun/Creatinine Ratio 11.8 (12.0-20.0); Calcium, Blood 9.4 mg/dL (8.5-10.1); Creatinine, Blood 4.33 mg/dL (0.40-1.00); Globulin, Blood 3.5 g/dL (2.2-4.0); Magnesium, Blood 2.4 mg/dL (1.6-2.4); Phosphorus, Blood 5.2 mg/dL (2.5-4.9); Potassium, Blood 4.2 mmol/L (3.5-5.5); Total Protein, Blood 6.7 g/dL (6.4-8.2)
--- NOTE | 2022-08-06 05:33 | NUR ---
PT BACK TO BED FROM CHAIR VIA LIFT EARLY IN SHIFT. APPEARED TO SLEEP MOST OF THE NOC, SHE HAS BEEN NOTED TO BEGIN MOANING AND BECOMING RESTLESS EVERY 1-2 HOURS, POSITION CHANGE HAS ALLEVIATED MOANING AND RESTLESSNESS WITH THE EXCEPTION OF 0330 TURN, FENTANYL WAS ADMINISTERED FOR CONTINUED C/O DISCOMFORT WITH RETURN TO REST. PT CONTINUES TO ROUSE TO VERBAL STIMULI THROUGHOUT NOC, MIDNOC ASSESSMENT SHE DID NOT ANSWER ASSESSMENT QUESTIONS HOWEVER 0400 ASSESSMENT SHE MUMBLED "[place]" WHEN ASKED IF SHE REMEMBERED WHERE SHE IS. ATTEMPT TO TITRATE OXYGEN DOWN WAS UNSUCCESSFUL HOWEVER PT HAS CONTINUED TO MAINTAIN SATS WITH OXYGEN AT 4 L/MIN VIA NASAL CANNULA, INTERMITTENT COUGH IS NOTED, SATS IMPROVE FROM LOW 90S TO HIGH 90S FOLLOWING PRODUCTIVE SOUNDING COUGH EPISODES. CONTINUES IN SINUS RHYTHM, LEVOPHED TITRATED UP FROM 2 MCG/MIN TO 8 MCG/MIN, MIDODRINE TIMING CHANGED TO EVERY 8 HOURS HOWEVER PT WAS NOT COOPERATIVE WITH TAKING PO MEDS AT MIDNOC.
--- NOTE | 2022-08-06 07:23 | NUR ---
Assumed care of pt at 0700 Pt resting comfortably at this time. Levophed infusing to maintain MAP >65. Pt following commands but not answering questions verbally. Grimaces to discomfort. No dialysis scheduled for today. RN to continue to follow.
--- NOTE | 2022-08-06 19:25 | NUR ---
END OF SHIFT NEURO: ALERT AND ORIENTED X2, KNOWS MONTH BUT NOT DAY. FOLLOWS ALL COMMANDS CARDIAC: SR, NO ECTOPY. LEVOPHED OFF 7205-3120, RESTARTED WHEN SBP IN THE 70'S AND PT SLEEPING. RESP: 2L NC, LUNGS CLEAR, DIMINSHED BILAT BASES. COUGH STRONG, NO SPUTUM EXPECTORATED. GI: PUREE DIET, EATING 10-20% AND UP TO 50% OF NEPRO SUPPLEMENT. : ROE UO 45ML TEA COLORED. DIALYSIS REMOVED 2L TODAY. SKIN: BARRIER CREAM APPLIED OT BUTTOCK AND CHAO AREA. HAS EXTENSIVE ECCHYMOSIS AT DIALYSIS CATHETER INSERTION SITE. DENIES PAIN. IV: PICC RIGHT UPPER ARM. LEVO AND NS TKO INFUSING. ALL PORTS FLUSH WELL. PSYCH: AT BEDSIDE. WORKED WITH CARE MANAGEMENT ON PAN DEVUL[employer] MEDICAID APPLICATION TODAY. HIS GOAL IS FOR PT TO RETURN HOME AND HE WILL BE ADJUNCT LECTURER CAREGIVER. PT LIVES IN [place]. REPORT GIVEN TO ONCOMING RN.
--- NOTE | 2022-08-06 20:02 | NUR ---
ASSUMED CARE: PT A&O X3; CAN TELL ME WHERE SHE IS AND WHAT YEAR AND THAT IT'S C[place] [facility], BUT CAN'T TELL ME THE EXACT DATE. JAVIER AT 3MM BILAT. SLOW TO RESPOND WITH HER ANSWERS, BUT IS APPROPRIATE. LS CLEAR UPPER WITH EXPIRATORY WHEEZES IN RML AND DIMINISHED IN THE BASES. NONPRODUCTIVE COUGH THAT CLEARS WHEEZES. BIOX 100% ON 5L N/C; DECREASE OR TO 3L N/C. HEART SOUNDS DISTANT WITH MONITOR SHOWING SR WITH PAC'S WITH HR 72. SKIN WARM AND DRY WITH BRUISES T/O. MOIST PERIAREA. CATH CARE DONE WITH CATH CLEANING CLOTHS. ROE DRAINING SCANT AMOUNT OF DARK TEA COLORED URINE. RU ARM TRIPLE LUMEN PICC WITH NS RUNNING AT 10CC/HR WITH LEVOPHED AT 2MCG/MIN=7.5CC/HR. PREMACATH RU CHEST WITH LARGE BRUISE AROUND. PT TURNED AND REPOSITIONED. REFUSED ORAL CARE AT THIS TIME; WILL DO IT WITH THE NEXT TURN.
[2022-08-07 00:17] LABS: pH Blood Venous 7.34 (7.34-7.37)
[2022-08-07 00:18] LABS: Base Excess Venous 6.9 mmol/L; Bicarbonate Venous 29.7 mmol/L (24.0-30.0); PCO2 Venous 60.7 mmHg (38-42)
--- NOTE | 2022-08-07 00:21 | NUR ---
REASSESS: TOOK ME OVER 5 MINUTES TO GET PT TO FULLY ROUSE TO KEEP HER EYES OPEN AND FOLOOW COMMANDS. PT AWOKE ENOUGH TO BE ABLE TO TAKE HER MEDS CRUCHED IN APPLE SAUCE; NO COUGHING OR ASPIRATION NOTED. SPOKE WITH RT ABOUT POSSIBILITY FOR PT TO BE HYPERCAPNIC; RT CALLED MD AND GOT AN ORDER FOR A VBG. PCO2 CAME BACK AT 60.7. RT SETTING UP BIPAP.
[2022-08-07 03:43] LABS: BASOPHILS ABSOLUTE AUTO 0.01 K/mm3 (0.00-0.23); BASOPHILS PERCENT AUTO 0 % (0-2); EOSINOPHILS ABSOLUTE AUTO 0.31 K/mm3 (0.00-0.68); EOSINOPHILS PERCENT AUTO 3 % (0-6); Hematocrit 22.7 % (33.0-51.0); Hemoglobin 7.1 g/dL (11.5-16.0); IMMATURE GRAN ABSOLUTE AUTO 0.06 K/mm3 (0.00-0.10); IMMATURE GRAN PERCENT AUTO 1 % (0-1); LYMPHOCYTES ABSOLUTE AUTO 1.78 K/mm3 (0.84-5.20); LYMPHOCYTES PERCENT AUTO 15 % (21-46); MONOCYTES ABSOLUTE AUTO 1.01 K/mm3 (0.16-1.47); MONOCYTES PERCENT AUTO 8 % (4-13); Mean Corpuscular HGB 36.8 pg (26.0-34.0); Mean Corpuscular HGB Conc 31.3 g/dL (31.5-36.5); Mean Corpuscular Volume 118 fL (80-100); Mean Platelet Volume 11.7 fL (9.1-12.4); NEUTROPHILS ABSOLUTE AUTO 8.95 K/mm3 (1.96-9.15); NEUTROPHILS PERCENT AUTO 74 % (41-73); Platelet Count 65 K/mm3 (150-400); RDW Coefficient Variation 23.1 % (11.7-14.2); RDW Standard Deviation 98.7 fL (35.1-46.3); Red Blood Cell Count 1.93 M/mm3 (3.80-5.20); White Blood Cell Count 12.12 K/mm3 (4.00-11.30)
[2022-08-07 03:57] LABS: Bilirubin, Total 4.3 mg/dL (0.1-1.0); Bun/Creatinine Ratio 9.5 (12.0-20.0); Creatinine, Blood 3.69 mg/dL (0.40-1.00); Globulin, Blood 3.1 g/dL (2.2-4.0); Magnesium, Blood 1.8 mg/dL (1.6-2.4); Phosphorus, Blood 4.2 mg/dL (2.5-4.9); Total Protein, Blood 6.1 g/dL (6.4-8.2)
--- NOTE | 2022-08-07 06:18 | NUR ---
SHIFT SUMMARY: PT HAS BEEN VERY SOMULENT THROUGHOUT THE NIGHT TO WHERE I WAS CONCERNED AND GOT AN ORDER FOR A VBG. PT IS NOW ON BIPAP 02/08 WITH 3L BLEED IN. MAP CONTINUE TO BE 50-60 WITH LEVOPHED AT 2MCG/MIN.
--- NOTE | 2022-08-07 07:00 | NUR ---
ASSUME CARE: I have assumed care of this patient.
--- NOTE | 2022-08-07 18:10 | NUR ---
SHIFT SUMMARY: NEURO: pt alert and oriented to person, place, situation, and month. Intermittant visual illusions. She was up in the chair twice today for several hours. Practiced standing with walker while in chair. Transferred to commode twice using yny-op-dgilj lift. CARDIAC: levophed titrated off. Diastolic BP's soft in 40-50's. NSR on monitor. RESPIRATORY: lung sounds cleared with coughing. 2L NC GI/: anuric. 2bms SKIN: breakdown noted to gluteal cleft, cleansed and treated with barrier cream PSYCH/SOCIAL: SO at bedside and supportive throughout the day.
--- NOTE | 2022-08-07 20:37 | NUR ---
ASSESSMENT: PT WAY MORE ALERT AND RESPONSIVE IN COMPARISON TO LAST NIGHT. PT C/O GAS PAIN FROM THE LACTULOSE SHE'S BEEN GETTING. CAN TELL ME WHERE SHE IS AND WHAT YEAR IT IS AND THE MONTH, BUT CAN'T TELL ME THE EXACT DATE. KNOWS SHE'S INT HOSPITAL. LS CLEAR T/O DIMINISHED IN THE BASES WITH BIOX 95% ON 2L N/C. MOSIT PRODUCTIVE COUGH THAT SHE SWALLOWS. HEART SOUNDS AUSCULTATED TODAY, BUT PT HAS INCREASED EDEMA TO HANDS AND BILAT LE'S TODAY. MONITOR SHOWING SR WITH HR 77. SKIN WITH BRUISES T/O. PICC CORBIN WITH 4CM OUT. PERMACATH R CHEST. PT SITTING IN CHAIR WATCHING TV. MEDS GIVEN AND ORAL CARE DONE.
--- NOTE | 2022-08-08 00:45 | NUR ---
REASSESS: PT SOMULENT, BUT AROUSES EASILY. A LITTLE CONFUSED WITH HER CONVERSATION TALKING ABOUT THE REFRIGERATOR IN HER ROOM AND HOW THERE'S PROTEIN DRINKS IN IT FOR GRANDMA. RECTAL TUBE LEAKED A BIT; CLEANED WITH NEW ALDRIDGE PLACED.
[2022-08-08 04:09] LABS: BASOPHILS ABSOLUTE AUTO 0.02 K/mm3 (0.00-0.23); BASOPHILS PERCENT AUTO 0 % (0-2); EOSINOPHILS ABSOLUTE AUTO 0.34 K/mm3 (0.00-0.68); EOSINOPHILS PERCENT AUTO 3 % (0-6); Hematocrit 23.6 % (33.0-51.0); Hemoglobin 7.7 g/dL (11.5-16.0); IMMATURE GRAN ABSOLUTE AUTO 0.04 K/mm3 (0.00-0.10); IMMATURE GRAN PERCENT AUTO 0 % (0-1); LYMPHOCYTES ABSOLUTE AUTO 1.96 K/mm3 (0.84-5.20); LYMPHOCYTES PERCENT AUTO 16 % (21-46); MONOCYTES ABSOLUTE AUTO 1.32 K/mm3 (0.16-1.47); MONOCYTES PERCENT AUTO 11 % (4-13); Mean Corpuscular HGB 37.4 pg (26.0-34.0); Mean Corpuscular HGB Conc 32.6 g/dL (31.5-36.5); Mean Corpuscular Volume 115 fL (80-100); Mean Platelet Volume 11.4 fL (9.1-12.4); NEUTROPHILS ABSOLUTE AUTO 8.75 K/mm3 (1.96-9.15); NEUTROPHILS PERCENT AUTO 70 % (41-73); Platelet Count 78 K/mm3 (150-400); RDW Coefficient Variation 23.7 % (11.7-14.2); RDW Standard Deviation 98.4 fL (35.1-46.3); Red Blood Cell Count 2.06 M/mm3 (3.80-5.20); White Blood Cell Count 12.43 K/mm3 (4.00-11.30)
[2022-08-08 04:27] LABS: Albumin/Globulin Ratio 0.9 (0.8-1.8); Bilirubin, Total 4.3 mg/dL (0.1-1.0); Bun/Creatinine Ratio 8.6 (12.0-20.0); Calcium, Blood 9.1 mg/dL (8.5-10.1); Creatinine, Blood 4.75 mg/dL (0.40-1.00); Globulin, Blood 3.3 g/dL (2.2-4.0); Magnesium, Blood 1.9 mg/dL (1.6-2.4); Phosphorus, Blood 3.8 mg/dL (2.5-4.9); Potassium, Blood 3.9 mmol/L (3.5-5.5); Total Protein, Blood 6.3 g/dL (6.4-8.2)
--- NOTE | 2022-08-08 06:04 | NUR ---
SHIFT SUMMARY: PT WAY MORE AWKE TONIGHT, BUT GOT A BIT CONFUSED AROUND 0200 THINKING HER SON AND GRANDDAUGHTER WERE HERE AND SHE WAS TALKING ABOUT THE REFIGERATOR IN HER ROOM. PT HAS CONTINUED WITH CONFUSED CONVERSATION THROUGHOUT THE MORNING, BUT IS EASILY REDIRECTED AND PLEASANT. BP HAS MAINTAINED WITH MAP 60-70 THROUGHOUT THE NIGHT WITHOUT ANY PRESSORS.
--- NOTE | 2022-08-08 09:45 | NUR ---
PT AGREED TO CARE FROM THIS STUDENT NURSE PILLS GIVEN CRUSHED IN YOGURT PER SPEECH THERAPIST RECOMMENDATION
--- NOTE | 2022-08-08 12:01 | NUR ---
Spiritual Care Visit - "Things We Care to Know"* Pt. is awake in bed, getting a dialysis treatment. Spouse is present and welcomes my visit. Pt. is unsettled by the discomfort in her leg. Listen empathetically with a calming presence. Prayed with Pt. Pt. and spouse verbalized gratitude for the spiritual care visit. Initated a "Things We Care to Know" Survey to be placed in the Pts. room. Pt. was an active participant. "Things We Care to Know" is a Spiritual Care highway patrol pilot program designed to personalize the Pt./Staff relationship, particularly for those who cannot always speak for themselves.
--- NOTE | 2022-08-08 12:10 | NUR ---
I HAVE BEEN OVERSEEING THE CARE OF THIS PATIENT WITH THE STUDENT NURSE. I HAVE EVALUATED AND ASSISTED THE STUDENT IN THE CHARTING OF THIS PATIENT. ANY NOTED DIFFERENCES WOULD BE CHARTED AND NOTED.
--- NOTE | 2022-08-08 18:05 | NUR ---
Met with pt and her today at the bedside. The pt continues to have altered mental status with occasional moments of clarity. Her is interested in discussing their journey so far, tells me he is working on re-starting food stamps, working on becoming a paid caregiver for her "eventually when she's strong enough to go home". Pt has shown slight improvement since exubation, but remains with multi- organ failure, physical deconditioning and decompensated liver disease. She would benefit from CPAP at night but usually declines this. Plan is for SNF discharge when pt is medically stable. Pt's is in no way interested in discussion of possible outcomes other than leaving the hospital and returning home after SNF rehab. He is also closed to any discussion on pt's code status. He accepted book, "Hard Choices for [place] People" to look through for now. Palliative to continue with supportive conversations with pt's . At this time, pt is unable to carry on any meaninful conversations.
--- NOTE | 2022-08-08 18:41 | NUR ---
WILFREDO HAS BEEN IN AND OUT OF THE BED TODAY. SHE IS ABLE TO COMMUNICATE WHERE SHE IS AND WHY, SHE STRUGGLES WITH THE ABILITY TO DISCERN REALITY FROM DREAMING. SHE IS EXPERIENCING DELIRIUM AND IS AGITATED. SHE HAS BEEN YELLING AT HER , IRRITATED WITH STAFF. OVERALL, SHE SEEMS DEPRESSED AND FRUS- TRATED WITH HER HOSPITALIZATION. SHE TOLERATED DIALYSIS WELL TODAY, SHE IS RECEIVING THE LACTULOSE AND IS HAVING WATERY DIARRHEA WITH A RECTAL TUBE, SHE CONTINUES TO LEAK HEAVILY AROUND THE RECTAL TUBE AND HAS MUCH EXCORIATION AND BREAKDOWN AROUND HER ANUS AND VAGINAL OPENING. HER EDEMA CONTINUES FROM MID THIGH TO TOES THAT IS PITTING UP TO 3+, SHE HAS PERIABDOMINAL EDEMA ABOUT THE PERIPHERY OF HER ABDOMEN THAT IS ABOUT 2+. SHE CONTINUES TO BE ANURIC. HER APPETITE IS NEARLY NON EXISTENT. SHE WAS ABLE TO EAT BREAKFAST AND ONLY TOOK IN FURTHER NUTRITION WITH HER MEDS. PALLIATIVE CARE SPENT SOME TIME SPEAKING WITH HER AND HER THIS AFTERNOON. NO CHANGE IN CURRENT TREATMENT. SHE IS AGAIN DOWNGRADED TO PCU STATUS.
[2022-08-09 03:39] LABS: BASOPHILS ABSOLUTE AUTO 0.04 K/mm3 (0.00-0.23); BASOPHILS PERCENT AUTO 0 % (0-2); EOSINOPHILS ABSOLUTE AUTO 0.29 K/mm3 (0.00-0.68); EOSINOPHILS PERCENT AUTO 2 % (0-6); Hematocrit 23.2 % (33.0-51.0); Hemoglobin 7.5 g/dL (11.5-16.0); IMMATURE GRAN ABSOLUTE AUTO 0.04 K/mm3 (0.00-0.10); IMMATURE GRAN PERCENT AUTO 0 % (0-1); LYMPHOCYTES ABSOLUTE AUTO 1.67 K/mm3 (0.84-5.20); LYMPHOCYTES PERCENT AUTO 14 % (21-46); MONOCYTES ABSOLUTE AUTO 1.25 K/mm3 (0.16-1.47); MONOCYTES PERCENT AUTO 10 % (4-13); Mean Corpuscular HGB 37.9 pg (26.0-34.0); Mean Corpuscular HGB Conc 32.3 g/dL (31.5-36.5); Mean Corpuscular Volume 117 fL (80-100); Mean Platelet Volume 11.2 fL (9.1-12.4); NEUTROPHILS ABSOLUTE AUTO 8.72 K/mm3 (1.96-9.15); NEUTROPHILS PERCENT AUTO 73 % (41-73); Platelet Count 63 K/mm3 (150-400); RDW Coefficient Variation 24.3 % (11.7-14.2); RDW Standard Deviation 102.4 fL (35.1-46.3); Red Blood Cell Count 1.98 M/mm3 (3.80-5.20); White Blood Cell Count 12.01 K/mm3 (4.00-11.30)
[2022-08-09 03:56] LABS: Albumin, Blood 2.8 g/dL (3.4-5.0); Albumin/Globulin Ratio 0.8 (0.8-1.8); Bilirubin, Total 3.8 mg/dL (0.1-1.0); Bun/Creatinine Ratio 6.7 (12.0-20.0); Calcium, Blood 9.1 mg/dL (8.5-10.1); Creatinine, Blood 4.01 mg/dL (0.40-1.00); Globulin, Blood 3.3 g/dL (2.2-4.0); Magnesium, Blood 2.2 mg/dL (1.6-2.4); Phosphorus, Blood 3.4 mg/dL (2.5-4.9); Potassium, Blood 3.7 mmol/L (3.5-5.5); Total Protein, Blood 6.1 g/dL (6.4-8.2)
--- NOTE | 2022-08-09 04:00 | NUR ---
CALLED MD ABOUT PT INCREASED CONFUSION AND TAKING OFF CLOTHES AND O2. ASKED FOR AN ABG OR VBG. MD STATED TO ORDER VBG AND AMMONIA LEVEL. ORDERS NOTED. RT AWARE.
[2022-08-09 04:29] LABS: Base Excess Venous 6.6 mmol/L; Bicarbonate Venous 29.7 mmol/L (24.0-30.0); PCO2 Venous 54.1 mmHg (38-42)
[2022-08-09 04:39] LABS: pH Blood Venous 7.38 (7.34-7.37)
--- NOTE | 2022-08-09 06:22 | NUR ---
PT BECAME INCREASINGLY AGITATED THROUGHOUT NIGHT, RIPPING OFF LCOHTES, HOLLERING, AND RIPPING OFF MONITOR WIRES. PT WAS FREQUENTLY REORINETED AND STATED SHE WILL FOLLOW DIRECTIONS BUT IMMEDIATELY BEGAN TO RIP OFF OXYGEN AND CLOTHES AGAIN. CONTACTED AND VBG AND AMMONIA ORDERED. PT ON 3L NC
--- NOTE | 2022-08-09 17:05 | NUR ---
SHIFT SUMMARY PT REMAINED CONFUSED WITH EPISODES OF MOANING OUT THIS SHIFT. PT ABLE TO BE REDIRECTED FOR BREIF PERIODS OF TIME AND ANSWER SOME QUESTIONS APPROPRIATELY. PT LETHARGIC. VITAL SIGNS HAVE REMAINED STABLE. PICC TO CORBIN REMAINS C/D/I, SALINE LOCKED. DIALYSIS CATH REMAINS C/D/I. PT TAKING IN PO INTAKE WITH ASSISTANCE. RECTAL TUBE REMAINS IN PLACE WITH LIQUID BROWN OUTPUT NOTED. PT SPOUSE AT BEDSIDE MOST OF THIS SHIFT. PT TRANSFERED OUT TO PCU 10 AT 1645 VIA BED. ALL PT BELONGINGS AND MEDS TAKEN WITH PT.
[2022-08-10 05:27] LABS: BASOPHILS ABSOLUTE AUTO 0.04 K/mm3 (0.00-0.23); BASOPHILS PERCENT AUTO 0 % (0-2); EOSINOPHILS ABSOLUTE AUTO 0.36 K/mm3 (0.00-0.68); EOSINOPHILS PERCENT AUTO 3 % (0-6); Hematocrit 24.9 % (33.0-51.0); Hemoglobin 7.9 g/dL (11.5-16.0); IMMATURE GRAN ABSOLUTE AUTO 0.05 K/mm3 (0.00-0.10); IMMATURE GRAN PERCENT AUTO 0 % (0-1); LYMPHOCYTES ABSOLUTE AUTO 1.99 K/mm3 (0.84-5.20); LYMPHOCYTES PERCENT AUTO 16 % (21-46); MONOCYTES ABSOLUTE AUTO 1.29 K/mm3 (0.16-1.47); MONOCYTES PERCENT AUTO 10 % (4-13); Mean Corpuscular HGB 37.1 pg (26.0-34.0); Mean Corpuscular HGB Conc 31.7 g/dL (31.5-36.5); Mean Corpuscular Volume 117 fL (80-100); Mean Platelet Volume 11.5 fL (9.1-12.4); NEUTROPHILS ABSOLUTE AUTO 8.67 K/mm3 (1.96-9.15); NEUTROPHILS PERCENT AUTO 70 % (41-73); Platelet Count 62 K/mm3 (150-400); RDW Coefficient Variation 23.6 % (11.7-14.2); RDW Standard Deviation 100.5 fL (35.1-46.3); Red Blood Cell Count 2.13 M/mm3 (3.80-5.20)
[2022-08-10 05:53] LABS: Albumin, Blood 2.8 g/dL (3.4-5.0); Albumin/Globulin Ratio 0.8 (0.8-1.8); Bilirubin, Total 4.1 mg/dL (0.1-1.0); Bun/Creatinine Ratio 6.6 (12.0-20.0); Calcium, Blood 9.3 mg/dL (8.5-10.1); Creatinine, Blood 5.29 mg/dL (0.40-1.00); Globulin, Blood 3.5 g/dL (2.2-4.0); Magnesium, Blood 2.4 mg/dL (1.6-2.4); Phosphorus, Blood 3.6 mg/dL (2.5-4.9); Potassium, Blood 3.7 mmol/L (3.5-5.5); Total Protein, Blood 6.3 g/dL (6.4-8.2)
--- NOTE | 2022-08-10 06:39 | NUR ---
SHIFT SUMMARY PT ALERT, ORIENTED TO SELF AND PLACE BUT HAS INTERMITTENT PERIODS OF CONFUSION. PT ALSO SHARES RANDOM PHRASES OR THOUGHTS NOT RELATED TO THE QUESTIONS BEING ASKED OR TO THE SITUATION. PT APPEARS RESTLESS AND SCREAMING OUT. PT NOT ABLE TO VERBALIZE WHY SHE IS YELLING OUT. PT DOES REPORT HER COCCYX HURTING. PT REPOSITIONED FREQUENTLY TO RELIEVE PRESSURE WELL TO HELP INCREASE COMFORT. RECTAL TUBE IN PLACE AND FOUND TO BE LEAKING; NEW RECTAL TUBE PLACED. YELLOW, WATERY STOOL DRAINING; 200 MLS OUT DURING BENZOL OPERATOR. VS; SBP 120'S, SR W/HR IN 80'S, O2 >95% ON 2 L NC. PT DOES PULL OUT NC FREQUENTLY; PT DESATS TO 86-88, RECOVERED WELL WHEN NC REPLACED. NO DISTRESS NOTED WITH DESATURATION. PT DOES NOT USE CALL LIGHT APPROPRIATELY; EDUCATION PROVIDED AND PT REMINDED TO USE CALL LIGHT. PT STILL NOT ABLE TO USE CALL LIGHT FOR NEEDS.
--- NOTE | 2022-08-10 08:00 | NUR ---
PT AWAKE AND ORIENTED TO SELF ONLY. PT VERY CONFUSED, AGITATED, AND RESTLESS THIS AM. PT REFUSING AM CARE AND MEDS. PT WILL NOT FOLLOW COMMANDS, BUT IS ALBRIGHT-APPEARS GENERALLY WEAK. ECG SHOWS SR WITH RATE 90'S. MAP 111-PT REFUSED MIDODRINE. DIALYSIS ANTICIPATED THIS AM. DR. BANUELOS AND IPHONE DEVELOPER DELELISA AWARE. LUNGS DIMINISHED IN THE BASES. SATS>90% ON 2 LITERS NASAL CANULA. SATS DROP TO 80'S ON RA.ABDOMEN IS DISTENDED AND FIRM WITH HYPOACTIVE BT'S X 4. PT IS ANURIC. SKIN AND SCLERA JAUNCICED. SKIN IS FRAIL WITH SCATTERED BRUISING T/O. PETROPHYSICAL ENGINEER-BIPIN IN TO ASSIST WITH AM CARE AND MEDS, BUT PT REFUSED THIS CARES FOR HER WELL.
--- NOTE | 2022-08-10 09:00 | NUR ---
PT REMAINS CONFUSED, RESTLESS, AND AGITATED. LINING SCRUBBER AT BEDSIDE TO INITIATE HEMODIALYSIS. PT PULLING ON ALL LINES AND TUBES AND ATTEMPTING TO GET OOB.DR. BANUELOS UPDATED. SOFT WRIST RESTRAINTS PLACED AND ATIVAN 2 MG IVP X 1 GIVEN.
--- NOTE | 2022-08-10 09:54 | NUR ---
PT WITH NOTED SLEEP APNEA. SATS DROPPED TO 70'S ON 2 LITERS NASAL CANULA. RT TRENT AT BEDSIDE. FIO2 TITRATED UP TO [address] BANUELOS NOTIFIED. ORDER GIVEN FOR BIPAP PRN.
--- NOTE | 2022-08-10 10:35 | NUR ---
Pal Care f/u visit after notified by nursing, that in a lucid moment, pt stated she did not want to cont with dialysis & has been declining care, not allowing interventions this am. Pt became anxious/agitated prior to dialysis and required soft restraints and rx to calm prior to starting tx. When I arrived in the room, sitting in chair, tearful. Two dialysis RNs were present off and on t/o my visit, working with equipment/pt's treatment. After time spent discussing current concerns, pt's suffering, her wishes, previous conversations between and pt, Donte requested that we discontinue curative treatment, including dialysis and transition pt to comfort care. Drs Angelito, Javier, Nate notified. Comfort care orders obtained and entered. Comfort Care Cart ordered for room. left to make calls to family but returned in 20 minutes. He had questions re: mortuary services and getting pt back to the [facility] for services. I am researching this information for him and will pass on anything I find out. expressed that he felt his was "exhausted and done" with the many weeks of being in the hospital and not getting better. Plan to visit again later to assess s/s and level of comfort, provide support to family.
--- NOTE | 2022-08-10 10:48 | NUR ---
DIALYSIS SEEN BY PALLIATIVE CARE AND PATIENT'S HOSPITALIST. THEY SPOKE TO ABOUT TRANSFERRING TO COMFORT CARE. DR. HERRERA VIDEOCALL WITH ABOUT COMFORT CARE. DECIDED TO GO TO COMFORT CARE AND DC DIALYSIS TREATMENT
--- NOTE | 2022-08-10 11:00 | NUR ---
PT MADE COMFORT CARE. HEMODIALYSIS STOPPED. PT REMAINS AGITATED, CONFUSED, AND RESTLESS-MED WITH HALDOL IVP-SEE EMAR. BED BATH, SKIN CARE, LINEN CHANGE COMPLETED. RECTAL TUBE REMOVED-CALAZIME APPLIED TO EXCORIATED AREAS TO CHAO/ANAL AREA.
--- NOTE | 2022-08-10 13:40 | NUR ---
DNR BAND PLACED TO LEFT WRIST. PT RESTING QUIETLY AT THIS TIME. PT SPOUSE AT BEDSIDE.
--- NOTE | 2022-08-10 14:38 | NUR ---
f/u Comfort care visit made. at bedside. He appears less distressed and verbalizes being grateful/at peace with decision to transition pt to comfort care. Pt is resting in bed without nonverbal indicators of pain, anxiety, agitation, restlessness at this time. She has increased work of breathing noted but does not appear in distress. Extremely sallow/sl jaundiced color noted. Time spent with , listening to life review. I obtained information on [facility] homes for him and provided names/#'s. He states his wanted to be cremated. Discussed calling local mortuaries also to check pricing as transporting ashes could be done by family for services later [facility] to [facility] were too high for family. Will visit again tomorrow am.
--- NOTE | 2022-08-10 18:16 | NUR ---
pt moving a bit, slightly opening her eyes, many family members in room, spouce asks for her to be medicated, 10mg of roxinol given after sitting her up, no further changes this shift. call light in reach.
--- NOTE | 2022-08-11 02:55 | NUR ---
PT HAS BEEN SLEEPING AND MOSTLY UNRESPONSIVE T/O THE NIGHT. PT QUIET AND FACE/LIMBS ARE RELAXED. NOTED INCREASED WORK OF BREATHING.
--- NOTE | 2022-08-11 02:57 | NUR ---
PT HAS BEEN MOSTING UNRESPONSIVE T/O THE SHIFT. PT IS QUIET; FACE/LIMBS RELAXED. NOTED INCREASED WORK OF BREATHING.
--- NOTE | 2022-08-11 03:24 | NUR ---
MMA FIGHTER SUMMARY AT THE START OF THE SHIFT THE PATIET WAS MOSTLY UNRESPONSIVE. WITHHELD ORDER FOR LACTULOSE. PT HAD SOME STIFF RIGID ARMS/LEGS AND GRIMACE WITH OCCASIONAL CALLING OUT. MED W/ROXINAL 1X AND CONT TO MONITOR. FOR THE REMAINDER OF THE NIGHT PT WAS QUIET AND APPEARED RELAXED. CONT T/MONITOR WITH Q2 COMFORT ASSESSMENTS AND POSITION CHANGES.
--- NOTE | 2022-08-11 10:30 | NUR ---
Comfort care visit - Pt appears restless, moving head back and forth, moaning at times. No understandable verbalizations or response to family/conversation noted. Increased work or breathing noted. Pt's color remains sallow/jaundiced. Reviewed medications ordered, s/s management and s/s of dying process with and long time friend at bedside. requests facial hair on chin be removed with shaver as he knows it would bother his if she were awake/alert. Update to RN and MOBILE DEVELOPMENT MANAGER on my visit and passed on 's request. had good questions about what to expect and how to be present for his . Time spent listening as and friend told life stories and reminisced about life with Teena. Friend had been a previous coworker to pt. Plan daily visits for s/s management per [facility].
--- NOTE | 2022-08-11 10:55 | NUR ---
PATIENT UNRESPONSIVE WITH EYES CLOSED. NO FACIAL GRIMACES, NO MOVEMENTS TO UPPER AND LOWER EXTREMITIES NOTED. PATIENT LYING IN BED COMFORTABLY. AT BEDSIDE AT THIS TIME.
--- NOTE | 2022-08-11 10:59 | NUR ---
MEDICATE PATIENT PER EMAR FOR PAIN. REPOSITION PATIENT TO L SIDE WITH 2 MAX ASSIST. PERICARE AND ORAL CARE DONE. SPOUSE AND PATIENT FRIEND AT BEDSIDE VISITING. CALL LIGHT IN REACH. COMFORT CARE CART REFRESHMENT WERE PROVIDED TO FAMILIES VISITING IN ROOM.
--- NOTE | 2022-08-11 19:36 | NUR ---
SHIFT SUMMARY: NO ACUTE CHANGES THI SHIFT. PATIENT REMAIN UNRESPONSIVE T/O SHIFT. RECEIVED ONE DOSE OF PRN ROXANOL FOR COMFORT. REPOSITIONED AND ORAL CARE DONE T/O THE DAY. PATIENT HAS BEEN RESTING COMFORTABLY WITH EYES CLOSED ALL DAY. NO SIGN OF UNLABORED BREATHING, AND NO GRIMACING. FAMILY AT BEDSIDE VISITING ALL DAY AND LEFT AROUND 1900. BED IN LOWEST POSITION, LOCKED AND CALL LIGHT IN REACH.
--- NOTE | 2022-08-11 22:50 | NUR ---
PT QUIET AND RELAXED; FLACC SCORE 0; REPOSITIONED. NO MEDS.
--- NOTE | 2022-08-11 22:52 | NUR ---
PT CRYING OUT OCCASSIONALLY; LIMBS TENSE/STARTLE. FLACC SCORE 5; MED P/EMAR. PT CLEAN/DRY. REPOSITION.
--- NOTE | 2022-08-12 04:22 | NUR ---
DIVISION ROAD SUPERVISOR SUMMARY PT MORE RESTLESS T/O THE SHIFT THAN PREVIOUS NIGHT; PERIODIC MOANING W/TENSE ARMS. TREATED W/ROXANOL FOR COMFORT; PT WOULD REFLEXIVELY PUSH MY HANDS AWAY I TOUCHED HER MOUTH WITH SWABS AND MEDICATIONS. NOTED SOME SPONTANEOUS EYE OPENING BUT PT IS MOSTLY UNRESPONSIVE. CONT W/Q2 COMFORT ASSESSMENTS AND POSITION CHANGES.
--- NOTE | 2022-08-12 08:00 | NUR ---
pt is laying on her back in bed with eyes closed, looks comfortable, no s/s of distress, resp are regular, no family at this time, call light in reach.
--- NOTE | 2022-08-12 11:00 | NUR ---
Case conference with MARK re: current status and 's request for finacial assist with arrangements. I would not recommend attempting d/c home [place] and pt's current rate of progression with dying processs. Comfort care visit made to bedside. Pt is unresponsive and looks comfortable without restlessness this am. at bedside and also feels pt's s/s have been managed well. Pal care to make daily supportive visits and for s/s management.
--- NOTE | 2022-08-12 18:42 | NUR ---
pt has been quiet most of the day, medicated once when she started moving a bit, spouce has been at bedside most of the day, no further acute changes this shift. call light in reach.
--- NOTE | 2022-08-13 05:04 | NUR ---
SHIFT SUMMARY Pt is on comfort care. Q2 turns. Pt is not able to communicate and only has brief periods of opening her eyes. Administered Roxinol as ordered when pt appears mildly agitate. Rested comfortably t/o the night, tolerated turning well.
--- NOTE | 2022-08-13 07:35 | NUR ---
pt laying in bed no s/s of distress noted, appears comfortable, doesn't respond, resp have slowed, slight pausing between breaths, call light in reach.
--- NOTE | 2022-08-13 14:38 | NUR ---
pt has been discharged to home, her nebulizer was delivered, instructions were given, discharge instructions were given to pt, she verbalized understanding, iv was removed intact, new meds called faxed to pharmacy of her choice, left via wheelchair with nurse in attendence, family here to transport her home. she has all her belongings.
--- NOTE | 2022-08-13 15:27 | NUR ---
pt has been unchanged all day, resp have a bit longer pause in between, lots of family in, appears comfortable, call light in reach.
--- NOTE | 2022-08-13 16:11 | NUR ---
erika called nurse in room at 1600, said he thinks she's gone, pt has no breath or heart beat, notified charge nurse and Dr. Kim. vero called to come to room.
--- NOTE | 2022-08-13 16:36 | NUR ---
Spiritual Care Request - EOL Pt. had passed and this kitchen assistant was contacted as family requested a kitchen assistant. Spouse welcomes me into the room. After big hugs with the spouse I Facilitate a life review. Spouse and Pt. are well connected in [facility]. Other family member is present, and Pts. daughter and SO are en route. Pts. spouse anticipates Pts. daughter to not be prepared for her mother's passing. Appropriate tears are shed off and on, as pastoral care is given. Prayed a blessing over the Pt. and the family and normalized the Pt./ home EOL experience. A doctor came to assure spouse that there are resources available through [facility] to help the family. [facility] in [place] will handle the arrangements. Spouse agreed to communicate with nursing staff when the family was leaving. This kitchen assistant will remain available during this shift to the family.
--- NOTE | 2022-08-13 17:23 | NUR ---
CARE CONFERENCE WITH RN, PT IS UNRESPONSIVE AND CLOSE TO END OF LIFE. SYMPTOMS ARE WELL MANAGED WITH CC MEDICATIONS. PT SPOUSE AND FAMILY IN THE ROOM, PT IS RESTING COMF IN ROOM. EYES ARE CLOSED, BREATHING IS IRREGULAR BUT UNLABORED. PT IS NOT RESPONSIVE TO VOICE OR TOUCH. SKIN IS PALE, WARM AND DRY. OFFERED EMOTIONAL SUPPORT AND THEUROPEUTIC LISTENING TO SPOUSE HE REMINISCES ABOUT THE PT, HER ACCOMPLISHMENTS AND 18 YEARS OF MARRIAGE. HE IS GETTING ENOUGH REST AND REPORTS HE HAS A LOT OF FAMILY SUPPORT. ADVISED I WILL CHECK IN ON THEM AGAIN TOMORROW AND TO CALL IF HE HAS ANY QUESTIONS OR NEEDS ADDITIONAL SUPPORT. PT IS ACTIVELY DYING, PPS10%, PALLIATIVE CARE WILL CONTINUE TO FOLLOW AND OFFER SUPPORT.
== END 2022-08-13 16:00 | DRG 673 ==
LOC: ICUW 03:50 → MEDS 03:50 → PCU 03:50 → ICUE 03:50 → ICUW 13:02 → ICUE 07-27 03:40 → PCU 07-30 14:54 → ICUE 07-31 06:05 → PCU 08-01 14:37 → ICUE 08-03 20:33 → PCU 08-09 16:30 → MEDS 08-10 15:26
PROVIDERS: Family Medicine; Family Medicine Adult Medicine; Hospitalist; Internal Medicine; Internal Medicine Critical Care Medicine; Internal Medicine Gastroenterology; Internal Medicine Nephrology; Nurse Practitioner Acute Care; Student in an Organized Health Care Education/Training Program; ADMIT Internal Medicine
PROC: 3E033XZ Introduction of Vasopressor into Peripheral Vein, Percutaneous Approach (ICD-10-PCS; 2022-07-17)
PROC: 30233N1 Transfusion of Nonautologous Red Blood Cells into Peripheral Vein, Percutaneous Approach (ICD-10-PCS; 2022-07-18)
PROC: 02HV33Z Insertion of Infusion Device into Superior Vena Cava, Percutaneous Approach (ICD-10-PCS; 2022-07-21)
PROC: 0DB68ZX Excision of Stomach, Via Natural or Artificial Opening Endoscopic, Diagnostic (ICD-10-PCS; 2022-07-22)
PROC: 0BH18EZ Insertion of Endotracheal Airway into Trachea, Via Natural or Artificial Opening Endoscopic (ICD-10-PCS; 2022-07-22)
PROC: 5A1955Z Respiratory Ventilation, Greater than 96 Consecutive Hours (ICD-10-PCS; 2022-07-22)
PROC: 5A1D70Z Performance of Urinary Filtration, Intermittent, Less than 6 Hours Per Day (ICD-10-PCS; principal; 2022-07-29)
PROC: 0JH63XZ Insertion of Tunneled Vascular Access Device into Chest Subcutaneous Tissue and Fascia, Percutaneous Approach (ICD-10-PCS; 2022-07-29)
PROC: 02HV33Z Insertion of Infusion Device into Superior Vena Cava, Percutaneous Approach (ICD-10-PCS; 2022-07-29)
PROC: B5181ZA Fluoroscopy of Superior Vena Cava using Low Osmolar Contrast, Guidance (ICD-10-PCS; 2022-07-29)
DX: N17.0 Acute kidney failure with tubular necrosis (principal); G92.8 Other toxic encephalopathy; J18.9 Pneumonia, unspecified organism; J96.01 Acute respiratory failure with hypoxia; J96.02 Acute respiratory failure with hypercapnia; E87.1 Hypo-osmolality and hyponatremia; R65.10 Systemic inflammatory response syndrome (SIRS) of non-infectious origin without acute organ dysfunction; E87.20 Acidosis, unspecified; I50.32 Chronic diastolic (congestive) heart failure; R57.9 Shock, unspecified; K92.1 Melena; E72.20 Disorder of urea cycle metabolism, unspecified; D62 Acute posthemorrhagic anemia; K76.6 Portal hypertension; J81.1 Chronic pulmonary edema; J44.0 Chronic obstructive pulmonary disease with (acute) lower respiratory infection; Z78.1 Physical restraint status; Z66 Do not resuscitate; K72.90 Hepatic failure, unspecified without coma; Z51.5 Encounter for palliative care; K31.89 Other diseases of stomach and duodenum; E87.6 Hypokalemia; K70.30 Alcoholic cirrhosis of liver without ascites; N93.9 Abnormal uterine and vaginal bleeding, unspecified; E66.01 Morbid (severe) obesity due to excess calories; N18.9 Chronic kidney disease, unspecified; I27.20 Pulmonary hypertension, unspecified; D69.6 Thrombocytopenia, unspecified; F17.210 Nicotine dependence, cigarettes, uncomplicated; D69.59 Other secondary thrombocytopenia; R34 Anuria and oliguria; D63.1 Anemia in chronic kidney disease; Z79.51 Long term (current) use of inhaled steroids; Z79.899 Other long term (current) drug therapy
CPT/HCPCS: 31500; 36415; 36430; 36556; 36558; 36569; 36600; 51702; 71045; 71250; 76705; 76937; 77001; 80048; 80053; 80069; 80074; 80202; 81001; 82140; 82248; 82272; 82330; 82436; 82533; 82550; 82570; 82607; 82728; 82746; 82803; 82947; 83516; 83520; 83540; 83550; 83605; 83735; 83880; 83930; 83935; 84100; 84145; 84165; 84295; 84300; 84443; 85014; 85018; 85025; 85027; 85610; 86037; 86160; 86225; 86235; 86317; 86803; 86850; 86900; 86901; 86920; 87040; 87070; 87106; 87205; 87340; 88305; 88342; 92526; 92610; 93306; 93308; 93321; 93971; 94002; 94003; 94640; 94660; 94664; 94760; 94762; 97110; 97162; 97164; 97166; 97530; 97535; 99152; A9270; C1750; C1751; C1752; C1769; C1894; C9113; J0171; J0295; J0461; J0692; J0696; J1430; J1630; J1644; J1940; J2060; J2250; J2270; J2354; J2405; J2704; J2920; J3010; J3370; J3411; J3480; J7030; J7040; J7050; J7060; P9016; P9047; Q5106